=== PATIENT | female | born 1975 | race Caucasian/White ===

== ENCOUNTER 2016-03-04 18:26 | Emergency (ER) | payer OTHER ==
[2016-03-04 18:34] VITALS: BP 178/93
[2016-03-04] MEDS ORDERED: hydrOXYzine HCL TAB* 25 MG PO ONE (20:33)
[2016-03-04] MEDS ORDERED: ValACYclovir (*) 1 GM TAB PO ONE (20:34)
--- NOTE | 2016-03-04 20:53 | ED ---
Skin Complaint - HPI Summary HPI Summary: The patient is a 40 female presenting for pruritic rash on right side of neck x2 days. Admits to preceding pain at site, but denies current pain. Denies associated fever, chills, diaphoresis, headache, visual disturbance, nasal symptoms, sore throat, cough, neck stiffness or immobility, nausea, vomiting, myalgia, or arthralgia. No prior similar rash. History of MENs, HTN, asthma, COPD, carcinoma of intestine, GERD. Is s/p knee surgery, partial colectomy. FH of CAD, HTN, DM. SH: current smoker. Denies alcohol or substance use. - History of Current Complaint Chief Complaint: EDRashSkinAbscess Time Seen by Provider: 03/04/16 20:31 Stated Complaint: RASH ON NECK Hx Last Menstrual Period: 01/07/15 Pain Intensity: 0 - Allergy/Home Medications Allergies/Adverse Reactions: Allergies Allergy/AdvReac Type Severity Reaction Status Date / Time Aspirin Allergy Severe Heartburn Verified 01/11/16 12:31 Cephalexin [From Keflex] Allergy Severe Anaphylatic Verified 01/11/16 12:31 Shock Erythromycin Allergy Severe Difficulty Verified 01/11/16 12:31 Breathing Moxifloxacin [From Avelox] Allergy Severe Anaphylatic Verified 01/11/16 12:31 Shock Penicillin V Allergy Severe Difficulty Verified 01/11/16 12:31 [From Penicillin VK Breathing Potassium] Ibuprofen Allergy Intermediate See Comment Verified 01/11/16 12:31 Morphine Allergy Intermediate Hives Verified 01/11/16 12:31 Pseudoephedrine Allergy Intermediate Hives Verified 01/11/16 12:31 [From Sudafed] Valproic Acid [From Depakote] Allergy Intermediate See Comment Verified 12:31 PMH/Surg Hx/FS Hx/Imm Hx Endocrine/Hematology History: Reports: Hx Thyroid Disease, Other Endocrine/ Hematological Disorders - MEN1 Denies: Hx Diabetes Cardiovascular History: Reports: Hx Hypertension Denies: Hx Congestive Heart Failure, Hx Pacemaker/ICD Respiratory History: Reports: Hx Asthma, Hx Chronic Obstructive Pulmonary Disease (COPD) - chronic bronchitis GI History: Reports: Hx Gastroesophageal Reflux Disease, Hx Irritable Bowel, 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 Denies: Hx Ulcer History: Denies: Hx Renal Disease Sensory History: Denies: Hx Hearing Aid Neurological History: Denies: Other Neuro Impairments/Disorders Psychiatric History: Reports: Hx Bipolar Disorder Denies: Hx Panic Disorder - Cancer History Cancer Type, 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 - Surgical History Surgery Procedure, Year, and Place: left knee reconstruction and meniscal repair , tumor removal from bowel duct, gallbladder, tubal ligation, appendix, PARATHYROIDECTOMY 07/2012 Infectious Disease History: No Infectious Disease History: Denies: Hx Hepatitis, Hx Human Immunodeficiency Virus (HIV), History Other Infectious Disease, Traveled Outside the [place] in Last 30 Days - Family History Known Family History: Positive: Cardiac Disease, Hypertension, Diabetes - Social History Alcohol Use: None Substance Use Type: Reports: None Smoking Status (MU): Light Every Day Tobacco Smoker Type: Cigarettes Amount Used/How Often: 1/2 - 1 PPD Length of Time of Smoking/Using Tobacco: 26 YRS Review of Systems Constitutional: Negative Eyes: Negative ENT: Negative Respiratory: Negative Musculoskeletal: Negative Positive: Rash Neurological: Negative All Other Systems Reviewed And Are Negative: Yes Physical Exam Triage Information Reviewed: Yes Vital Signs On Initial Exam: Initial Vitals Temp Pulse Resp BP Pulse Ox 97.3 F 83 20 178/93 100 03/04/16 18:30 03/04/16 18:30 03/04/16 18:30 03/04/16 18:30 03/04/16 18:30 Vital Signs Reviewed: Yes Appearance: Positive: Well-Appearing, No Pain Distress, Obese Skin: Positive: Warm, Skin Color Reflects Adequate Perfusion, Dry, Other - right posterior scalp with erythematous raised vesicular patches that do not cross the midline; no facial involvement; no induration or fluctuance. Head/Face: Positive: Normal Head/Face Inspection Eyes: Positive: Normal, EOMI, MALIK, Conjunctiva Clear ENT: Positive: Normal ENT inspection, Hearing grossly normal, Pharynx normal, TMs normal Neck: Positive: Supple, Nontender, No Lymphadenopathy Respiratory/Lung Sounds: Positive: Clear to Auscultation, Breath Sounds Present. Negative: Rales, Rhonchi, Wheezes Cardiovascular: Positive: Normal, RRR, S1, S2. Negative: Murmur, Rub Neurological: Positive: Normal - awake, alert Psychiatric: Positive: Normal AVPU Assessment: Alert Diagnostics - Vital Signs Vital Signs Temp Pulse Resp BP Pulse Ox 03/04/16 18:30 97.3 F 83 20 178/93 100 - Laboratory Lab Statement: Any lab studies that have been ordered have been reviewed, and results considered in the medical decision making process. Course/Dx - Course Assessment/Plan: Clinical impression of herpes zoster. Reports more pruritis than pain. Rx for Vistaril and Valtrex. Educated on avoidance of women , infants, and elderly. Advised to follow-up with PCP in 7-10 days. - Diagnoses Provider Diagnoses: Herpes zoster Discharge - Discharge Plan Condition: Stable Disposition: HOME Prescriptions: ValACYclovir (*) [Valtrex 1 GM(*)] 1 gm PO TID #21 tab hydrOXYzine PAMOATE CAP* [Vistaril CAP*] 25 mg PO Q6HR #20 cap Patient Education Materials: Shingles (ED) Referrals: Aleksandra Miles MD [Primary Care Provider] - 1 Week
== END 2016-03-04 20:52 | disposition home or self-care (01) ==
LOC: ED 18:26
DX: B02.9 Zoster without complications (principal); F31.9 Bipolar disorder, unspecified; Z88.0 Allergy status to penicillin; Z88.5 Allergy status to narcotic agent; Z88.6 Allergy status to analgesic agent; I10 Essential (primary) hypertension; F17.210 Nicotine dependence, cigarettes, uncomplicated
CPT/HCPCS: 99282; A9270-GY

== ENCOUNTER 2016-03-17 19:48 | Emergency (ER) | payer OTHER ==
[2016-03-17 20:01] VITALS: BP 155/100
--- NOTE | 2016-03-20 09:19 | ED ---
Throat Pain/Nasal Congestion - HPI Summary HPI Summary: Patient arrives to ED with CC of right ear pain and cheek swelling since this AM. Denies fever. Denies trauma or recent illness. States pain feels deep inside the ear which began this AM and radiates down to her mandible. Now, starting to feel like her jaw is swollen. Denies tooth pain or recent infection in the jaw/teeth. States she has allergies to several medications and could be allergic reaction, but denies taking any medications currently. Denies sinus discomfort, IRENE, blurry or double vision or hearing changes. - History of Current Complaint Hx Obtained From: Patient Onset/Duration: Sudden Onset Severity: Mild Associated Signs And Symptoms: Positive: Negative - Epiglottits Risk Factors Epiglottis Risk Factors: Negative <Kate Oates - Last Filed: 03/20/16 09:11> <Arcadio Steve - Last Filed: 03/20/16 20:59> - History of Current Complaint Chief Complaint: EDEarPain Time Seen by Provider: 03/17/16 20:06 - Allergies/Home Medications Allergies/Adverse Reactions: Allergies Allergy/AdvReac Type Severity Reaction Status Date / Time Aspirin Allergy Severe Heartburn Verified 01/11/16 12:31 Cephalexin [From Keflex] Allergy Severe Anaphylatic Verified 01/11/16 12:31 Shock Erythromycin Allergy Severe Difficulty Verified 01/11/16 12:31 Breathing Moxifloxacin [From Avelox] Allergy Severe Anaphylatic Verified 01/11/16 12:31 Shock Penicillin V Allergy Severe Difficulty Verified 01/11/16 12:31 [From Penicillin VK Breathing Potassium] Ibuprofen Allergy Intermediate See Comment Verified 01/11/16 12:31 Morphine Allergy Intermediate Hives Verified 01/11/16 12:31 Pseudoephedrine Allergy Intermediate Hives Verified 01/11/16 12:31 [From Sudafed] Valproic Acid [From Depakote] Allergy Intermediate See Comment Verified 12:31 PMH/Surg Hx/FS Hx/Imm Hx Previously Healthy: Yes Endocrine/Hematology History: Reports: Hx Thyroid Disease, Other Endocrine/ Hematological Disorders - MEN1 Denies: Hx Diabetes Cardiovascular History: Reports: Hx Hypertension Denies: Hx Congestive Heart Failure, Hx Pacemaker/ICD Respiratory History: Reports: Hx Asthma, Hx Chronic Obstructive Pulmonary Disease (COPD) - chronic bronchitis GI History: Reports: Hx Gastroesophageal Reflux Disease, Hx Irritable Bowel, 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 Denies: Hx Ulcer History: Denies: Hx Renal Disease Sensory History: Denies: Hx Hearing Aid Neurological History: Denies: Other Neuro Impairments/Disorders Psychiatric History: Reports: Hx Bipolar Disorder Denies: Hx Panic Disorder - Cancer History Cancer Type, 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 - Surgical History Surgery Procedure, Year, and Place: left knee reconstruction and meniscal repair , tumor removal from bowel duct, gallbladder, tubal ligation, appendix, PARATHYROIDECTOMY 07/2012 Infectious Disease History: No Infectious Disease History: Denies: Hx Hepatitis, Hx Human Immunodeficiency Virus (HIV), History Other Infectious Disease, Traveled Outside the [place] in Last 30 Days - Family History Known Family History: Positive: Cardiac Disease, Hypertension, Diabetes - Social History Occupation: Employed Full-time Lives: With Family Alcohol Use: None Hx Substance Use: No Substance Use Type: Reports: None Smoking Status (MU): Light Every Day Tobacco Smoker Type: Cigarettes Amount Used/How Often: 1/2 - 1 PPD Length of Time of Smoking/Using Tobacco: 26 YRS <Kate Oates - Last Filed: 03/20/16 09:11> Review of Systems Constitutional: Negative Eyes: Negative Positive: Ear Ache, Other - left sided jaw pain Cardiovascular: Negative Respiratory: Negative Musculoskeletal: Negative Skin: Negative Neurological: Negative Psychological: Normal All Other Systems Reviewed And Are Negative: Yes <Kate Oates - Last Filed: 03/20/16 09:11> Physical Exam Triage Information Reviewed: Yes Vital Signs On Initial Exam: Initial Vitals Temp Pulse Resp BP Pulse Ox 97.7 F 93 20 155/100 99 03/17/16 19:57 03/17/16 19:57 03/17/16 19:57 03/17/16 19:57 03/17/16 19:57 Vital Signs Reviewed: Yes Appearance: Positive: Well-Appearing, No Pain Distress, Well-Nourished Skin: Positive: Warm, Skin Color Reflects Adequate Perfusion Head/Face: Positive: Normal Head/Face Inspection, Other - NO TMJ tenderness Eyes: Positive: Normal, EOMI ENT: Positive: Normal ENT inspection, Pharynx normal, TMs normal Neck: Positive: Supple, Nontender Respiratory/Lung Sounds: Positive: Clear to Auscultation, Breath Sounds Present Cardiovascular: Positive: Normal Musculoskeletal: Positive: Normal, Strength/ROM Intact Neurological: Positive: Normal, Sensory/Motor Intact, Speech Normal Psychiatric: Positive: Normal AVPU Assessment: Alert <Kate Oates - Last Filed: 03/20/16 09:11> Vital Signs On Initial Exam: Initial Vitals Temp Pulse Resp BP Pulse Ox 97.7 F 93 20 155/100 99 03/17/16 19:57 03/17/16 19:57 03/17/16 19:57 03/17/16 19:57 03/17/16 19:57 <Arcadio Steve - Last Filed: 03/20/16 20:59> Diagnostics - Vital Signs Vital Signs Temp Pulse Resp BP Pulse Ox 03/17/16 19:57 97.7 F 93 20 155/100 99 <Kate Oates - Last Filed: 03/20/16 09:11> - Vital Signs Vital Signs Temp Pulse Resp BP Pulse Ox 03/17/16 19:57 97.7 F 93 20 155/100 99 <Arcadio Steve - Last Filed: 03/20/16 20:59> EENT Course/Dx - Course Course Of Treatment: On physical examination, patient well nourished, well appearing. No signs of infection, swelling or tooth abscess. No fever. TM's normal appearing with no drainage or erythema. Patient encouraged to try OTC allergy medication and ibuprofen for discomfort. Return precautions given, however low suspician for infection. Patient agrees with plan. - Differential Diagnoses Differential Diagnoses: Dental Abscess, Odontogenic Pain, Otitis Media, Trigeminal Neuralgia <Kate Oates - Last Filed: 03/20/16 09:11> - Course Assessment/Plan: I was available for consultation. This patient was seen by mid level provider. The patient was not presented, seen, or examined by me. WR. <Arcadio Steve - Last Filed: 03/20/16 20:59> - Diagnoses Provider Diagnoses: Right ear pain Discharge <Kate Oates - Last Filed: 03/20/16 09:11> <Arcadio Steve - Last Filed: 03/20/16 20:59> - Discharge Plan Condition: Stable Disposition: HOME Patient Education Materials: Earache (ED) Referrals: Aleksandra Miles MD [Primary Care Provider] - Additional Instructions: Benadryl at night. Claritin D-24 during the day to reduce swelling and fluid. Come back to ED if symptoms worsen or fail to improve. No signs of infection are seen today, but if fever develops, swelling, difficulty swallowing or chewing or throat pain, come back to ED.
== END 2016-03-17 21:00 | disposition home or self-care (01) ==
LOC: ED 19:48
DX: H92.01 Otalgia, right ear (principal)
CPT/HCPCS: 99282

== ENCOUNTER 2017-04-01 04:32 | Emergency (ER) | payer MEDICAID, OTHER ==
[2017-04-01 05:36] LABS: ABS Basophils 0 10^3/ul (0-0.2); ABS Eosinophils 0.1 10^3/ul (0-0.6); ABS Lymphocytes 2.5 10^3/ul (1.0-4.8); ABS Monocytes 0.7 10^3/ul (0-0.8); ABS Neutrophils 6.4 10^3/ul (1.5-7.7); ABS Nucleated RBC 0 10^3/ul; Eosinophil % 1.1 % (0-6); Hematocrit 35 % (35-47); Hemoglobin 11.3 g/dl (12.0-16.0); Lymphocyte % 25.9 % (25-47); Mean Corpuscular HGB Conc 32 g/dl (31-36); Mean Corpuscular Hemoglobin 24 pg (27-31); Mean Corpuscular Volume 75 fL (80-97); Mean Platelet Volume 9 um3 (7.4-10.4); Nucleated Red Blood Cells % 0; Platelet Count 268 10^3/ul (150-450); Red Blood Count 4.68 10^6/ul (4.0-5.4); Red Cell Distribution Width 17 % (10.5-15); White Blood Count 9.7 10^3/ul (3.5-10.8)
[2017-04-01 05:58] LABS: Urine Appearance Clear; Urine Blood 2+ (Negative); Urine Color Yellow; Urine Ketones Negative (Negative); Urine Protein Negative (Negative); Urine Specific Gravity 1.018 (1.010-1.030); Urine Urobilinogen Negative (Negative)
--- NOTE | 2017-04-01 06:39 | ED ---
Yared Escudero Angela, scribed for Remi Doe on 04/01/17 at 0459 . Psychiatric Complaint - HPI Summary HPI Summary: This pt is a 42 y/o female presenting to [facility] for a medication refill. She has ran out of her bipolar disorder medications due to issues with her Medicaid. Pt reports she has not been sleeping well, sleeping only a couple of hours a night. She states she has been crying uncontrollably. The last time she took her medications was on 03/22/17. Pt reports she has just recently moved back to [place] on 02/26/17. She denies SI, HI, auditory or visual hallucinations. Pt denies any other complaints or pain. Pt used to see Dr. Cardenas at [facility] before she moved out of town but has not been able to see a psychiatrist since she moved back to [place]. She notes she takes Seroquel, Buspar, Lisinopril, escitalopram. Pt has an appointment with her PCP on 04/07/17. Denies drug, alcohol, or tobacco use. PMHx: bipolar disorder, HTN, asthma, sleep apnea, insomnia, COPD. - History Of Current Complaint Chief Complaint: EDPrescriptionNeeded Time Seen by Provider: 04/01/17 04:40 Hx Obtained From: Patient Hx Last Menstrual Period: 01/07/15 Onset/Duration: Lasting Days, Still Present Timing: Days Severity Currently: Moderate Character: Anxious Aggravating Factor(s): Medication Non-compliance Alleviating Factor(s): Nothing Associated Signs And Symptoms: Positive: Sleep Disturbance. Negative: Hallucinating Has Suicidal: Denies: Thoughts, With A Plan Has Homicidal: Denies: Thoughts, With A Plan - Allergies/Home Medications Allergies/Adverse Reactions: Allergies Allergy/AdvReac Type Severity Reaction Status Date / Time MS Aspirin [Aspirin] Allergy Severe Heartburn Verified 01/11/16 12:31 MS Cephalexin [From Keflex] Allergy Severe Anaphylatic Verified 01/11/16 12:31 Shock MS Erythromycin Allergy Severe Difficulty Verified 01/11/16 12:31 [Erythromycin] Breathing MS Moxifloxacin [From Avelox] Allergy Severe Anaphylatic Verified 01/11/16 12:31 Shock MS Penicillin V Allergy Severe Difficulty Verified 01/11/16 12:31 [From Penicillin VK Breathing Potassium] MS Ibuprofen [Ibuprofen] Allergy Intermediate See Comment Verified 01/11/16 12: 31 MS Morphine [Morphine] Allergy Intermediate Hives Verified 01/11/16 12:31 MS Pseudoephedrine Allergy Intermediate Hives Verified 01/11/16 12:31 [From Sudafed] MS Valproic Acid Allergy Intermediate See Comment Verified 01/11/16 12:31 [From Depakote] PMH/Surg Hx/FS Hx/Imm Hx Endocrine/Hematology History: Reports: Hx Thyroid Disease, Other Endocrine/ Hematological Disorders - MEN1 Denies: Hx Diabetes Cardiovascular History: Reports: Hx Hypertension Denies: Hx Congestive Heart Failure, Hx Pacemaker/ICD Respiratory History: Reports: Hx Asthma, Hx Chronic Obstructive Pulmonary Disease (COPD) - chronic bronchitis, Hx Sleep Apnea GI History: Reports: Hx Gastroesophageal Reflux Disease, Hx Irritable Bowel, 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 Denies: Hx Ulcer History: Denies: Hx Renal Disease Sensory History: Denies: Hx Hearing Aid Neurological History: Denies: Other Neuro Impairments/Disorders Psychiatric History: Reports: Hx Bipolar Disorder Denies: Hx Panic Disorder - Cancer History Cancer Type, 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 - Surgical History Surgery Procedure, Year, and Place: left knee reconstruction and meniscal repair , tumor removal from bowel duct, gallbladder, tubal ligation, appendix, PARATHYROIDECTOMY 07/2012 Infectious Disease History: No Infectious Disease History: Denies: Hx Hepatitis, Hx Human Immunodeficiency Virus (HIV), History Other Infectious Disease, Traveled Outside the [place] in Last 30 Days - Family History Known Family History: Positive: Cardiac Disease, Hypertension, Diabetes - Social History Alcohol Use: None Hx Substance Use: No Substance Use Type: Reports: None Smoking Status (MU): Light Every Day Tobacco Smoker Type: Cigarettes Amount Used/How Often: 1/2 - 1 PPD Length of Time of Smoking/Using Tobacco: 26 YRS Review of Systems Negative: Fever, Chills Eyes: Negative ENT: Negative Cardiovascular: Negative Respiratory: Negative Gastrointestinal: Negative Genitourinary: Negative Psychological: Other - sleep disturbance, crying Positive: Anxious. Negative: Other - SI, HI, hallucinations All Other Systems Reviewed And Are Negative: Yes Physical Exam - Summary Physical Exam Summary: Appearance: Well appearing, no pain distress Skin: warm, dry, reflects adequate perfusion Head/face: normal Eyes: EOMI, MALIK ENT: normal Neck: supple, nontender Respiratory: CTA, breath sounds present Cardiovascular: RRR, pulses symmetrical Abdomen: nontender, soft Bowel: present Musculoskeletal: normal, strength/ROM intact Neuro: normal, sensory motor intact, A&Ox3 Psych: depressed affect Triage Information Reviewed: Yes Vital Signs On Initial Exam: Initial Vitals Temp Pulse Resp BP Pulse Ox 97.9 F 66 16 151/95 99 04/01/17 04:36 04/01/17 04:36 04/01/17 04:36 04/01/17 04:36 04/01/17 04:36 Vital Signs Reviewed: Yes Diagnostics - Vital Signs Vital Signs Temp Pulse Resp BP Pulse Ox 04/01/17 04:36 97.9 F 66 16 151/95 99 - Laboratory Result Diagrams: 04/01/17 05:09 04/01/17 05:09 Lab Statement: Any lab studies that have been ordered have been reviewed, and results considered in the medical decision making process. Course/Dx - Course Course Of Treatment: Pt is a 42 y/o female, with hx of bipolar disorder, for prescription refill (last took meds on 03/22/17). Pt reports she has not been sleeping well and has been crying uncontrollably. Denies SI, HI, or hallucinations. Pt is medically cleared at 5:41. Pt is awaiting MHE. Pt will be signed out to Dr. Parra, pending disposition, awaiting MHE. - Differential Dx/Clinical Impression Provider Diagnosis: Depression Discharge - Discharge Plan Condition: Stable Disposition: OTHER Discharge Disposition Comment: Pt will be signed out to Dr. Parra, pending disposition, awaiting MHE Referrals: Aleksandra Miles MD [Primary Care Provider] - The documentation as recorded by the Yared cheema Angela accurately reflects the service I personally performed and the decisions made by , Remi Doe.
[2017-04-01] MEDS ORDERED: Mouth Piece, Nicotine* 1 EACH CARTRIDGE INH PRN (08:16)
[2017-04-01] MEDS ORDERED: Nicotine Inhaler* 10 MG AMP INH ONE (08:16)
[2017-04-01] MEDS ORDERED: Nicotine Inhaler* 10 MG AMP ONE ×2 (08:18)
[2017-04-01] MEDS ORDERED: Mouth Piece, Nicotine* 1 EACH CARTRIDGE ONE (08:18)
--- NOTE | 2017-04-01 09:40 | PN ---
ED Flex Patient Progress Note Date of Service: 04/01/17 Subjective: This is a 42 year-old F who is pending discharge to home Pt offers no complaints at this time Objective: Vitals: Most recent vital signs documented below. General NAD, Alert and oriented x3. Heart: rrr at 65 bpm Lungs: CTA or with rales, rhonchi, wheezing Laboratory: Current laboratory results documented below. Assessment: pending discharge home Plan: Pending psychiatric discharge Vital Signs Temp Pulse Resp BP Pulse Ox 98.1 F 69 16 136/74 100 04/01/17 09:19 04/01/17 09:19 04/01/17 09:19 04/01/17 09:19 04/01/17 09:19 Lab Results - Entire Visit 04/01/17 04/01/17 04/01/17 05:26 05:26 05:09 WBC 9.7 RBC 4.68 Hgb 11.3 L Hct 35 MCV 75 L MCH 24 L MCHC 32 RDW 17 H Plt Count 268 MPV 9 Neut % (Auto) 65.5 Lymph % (Auto) 25.9 [place] % (Auto) 7.1 H Eos % (Auto) 1.1 Baso % (Auto) 0.4 Absolute Neuts (auto) 6.4 Absolute Lymphs (auto) 2.5 Absolute Monos (auto) 0.7 Absolute Eos (auto) 0.1 Absolute Basos (auto) 0 Absolute Nucleated RBC 0 Nucleated RBC % 0 Sodium Potassium Chloride Carbon Dioxide Anion Gap BUN Creatinine Est GFR ( Amer) Est GFR (Non-Af Amer) BUN/Creatinine Ratio Glucose Calcium Total Bilirubin AST ALT Alkaline Phosphatase Total Protein Albumin Globulin Albumin/Globulin Ratio TSH Beta HCG, Quant Urine Color Yellow Urine Appearance Clear Urine pH 6.0 Ur Specific [place] 1.018 Urine Protein Negative Urine Ketones Negative Urine Blood 2+ H Urine Nitrate Negative Urine Bilirubin Negative Urine Urobilinogen Negative Ur Leukocyte Esterase Negative Urine WBC (Auto) Trace(0-5/hpf) Urine RBC (Auto) Trace(0-2/hpf) Ur Squamous Epith Cells Present H Urine Bacteria Absent Urine Glucose Negative Salicylates Urine Opiates Screen None detected Acetaminophen Ur Barbiturates Screen None detected Ur Phencyclidine Scrn None detected Ur Amphetamines Screen None detected U Benzodiazepines Scrn None detected Urine Cocaine Screen None detected U Cannabinoids Screen None detected Serum Alcohol 04/01/17 05:09 WBC RBC Hgb Hct MCV MCH MCHC RDW Plt Count MPV Neut % (Auto) Lymph % (Auto) [place] % (Auto) Eos % (Auto) Baso % (Auto) Absolute Neuts (auto) Absolute Lymphs (auto) Absolute Monos (auto) Absolute Eos (auto) Absolute Basos (auto) Absolute Nucleated RBC Nucleated RBC % Sodium 138 Potassium 3.7 Chloride 107 Carbon Dioxide 24 Anion Gap 7 BUN 13 Creatinine 0.72 Est GFR ( Amer) 113.2 Est GFR (Non-Af Amer) 88.0 BUN/Creatinine Ratio 18.1 Glucose 98 Calcium 8.3 L Total Bilirubin 0.30 AST 20 ALT 50 Alkaline Phosphatase 106 H Total Protein 6.3 L Albumin 3.6 Globulin 2.7 Albumin/Globulin Ratio 1.3 TSH 3.53 Beta HCG, Quant < 0.60 Urine Color Urine Appearance Urine pH Ur Specific [place] Urine Protein Urine Ketones Urine Blood Urine Nitrate Urine Bilirubin Urine Urobilinogen Ur Leukocyte Esterase Urine WBC (Auto) Urine RBC (Auto) Ur Squamous Epith Cells Urine Bacteria Urine Glucose Salicylates < 2.50 Urine Opiates Screen Acetaminophen < 15 Ur Barbiturates Screen Ur Phencyclidine Scrn Ur Amphetamines Screen U Benzodiazepines Scrn Urine Cocaine Screen U Cannabinoids Screen Serum Alcohol < 10
[2017-04-01 10:18] VITALS: BP 144/70
--- NOTE | 2017-04-01 20:30 | ED ---
Kena, Donna Boucher, scribed for Denia Treviño MD on 04/01/17 at 0816 . Progress - Progress Note Progress Note: This pt is a sign out from Dr. Doe pending MHE. Course/Dx - Course Course Of Treatment: Pt is a 42 y/o female, with hx of bipolar disorder, for prescription refill (last took meds on 03/22/17). Pt reports she has not been sleeping well and has been crying uncontrollably. Denies SI, HI, or hallucinations. Pt is medically cleared at 5:41. Pt is awaiting MHE. Pt will be signed out to Dr. Treviño, pending disposition, awaiting MHE. DR. TREVIÑO SHIFT: At 8:38, the pt was cleared for flex unit. Anticipate d/c with outpatient medications. Spoke to SHELBY Mcelroy MHE.The pt will be discharged with prescriptions. DX: Bipolar disorder. SHELBY Mcelroy spoke with Dr. Andrade (psychiatrist contract accountant) and relayed disposition to Dr. Treviño. Pt will follow up with Dr. Miles on her scheduled appointment on 04/07. DISPOSITION: STABLE, DX: BIPOLAR DISORDER - Diagnoses Provider Diagnoses: Depression, Bipolar disorder The documentation as recorded by the Sander cheema Stephanie accurately reflects the service I personally performed and the decisions made by , Denia Treviño MD.
== END 2017-04-01 10:17 | disposition home or self-care (01) ==
LOC: ED 04:32
DX: F32.9 Major depressive disorder, single episode, unspecified (principal); F31.9 Bipolar disorder, unspecified; G47.9 Sleep disorder, unspecified; F17.210 Nicotine dependence, cigarettes, uncomplicated; Z86.79 Personal history of other diseases of the circulatory system
CPT/HCPCS: 36415; 80053; 80307; 80320; 80329; 81003; 81015; 84443; 84702; 85025; 99283; A9270-GY; G0480

== ENCOUNTER 2017-07-25 09:30 | Emergency (ER) | payer MEDICAID, OTHER ==
[2017-07-25 09:59] VITALS: BP 125/75
--- NOTE | 2017-07-25 10:17 | UC ---
Hand/Wrist HPI - HPI Summary HPI Summary: pt presents s/p a foosh that happened last night with she tripped over her dog in the dark. pt landed on left wrist. - History Of Current Complaint Chief Complaint: UCUpperExtremity Stated Complaint: S/P FALL LEFT WRIST INJURY Time Seen by Provider: 07/25/17 09:39 Hx Obtained From: Patient Hx Last Menstrual Period: 07/18/17 ?: No Onset/Duration: Sudden Onset, Still Present Severity Initially: Moderate Severity Currently: Moderate Pain Intensity: 5 Character Of Pain: Sharp, Aching Aggravating Factor(s): Movement Alleviating Factor(s): Rest Associated Signs And Symptoms: Positive: Swelling, Numbness/Tingling - mild tingling. Negative: Redness, Bruising, Fever, Weakness - Allergies/Home Medications Allergies/Adverse Reactions: Allergies Allergy/AdvReac Type Severity Reaction Status Date / Time aspirin Allergy Heartburn Verified 07/25/17 09:50 cephalexin [From Keflex] Allergy Anaphylatic Verified 07/25/17 09:50 Shock divalproex sodium Allergy See Comment Verified 07/25/17 09:50 [From Depakote] erythromycin base Allergy Anaphylatic Verified 07/25/17 09:50 Shock ibuprofen Allergy Heartburn Verified 07/25/17 09:50 morphine Allergy Hives Verified 07/25/17 09:50 moxifloxacin [From Avelox] Allergy Anaphylatic Verified 07/25/17 09:50 Shock Penicillins Allergy Anaphylatic Verified 07/25/17 09:50 Shock pseudoephedrine Allergy Hives Verified 07/25/17 09:50 [From Sudafed] Home Medications: Home Medications Omeprazole CAP* [Prilosec CAP* 20 MG] 40 mg PO DAILY 07/25/17 [History Confirmed 07/25/17] Zolpidem TAB* [Ambien TAB*] 10 mg PO BEDTIME 07/25/17 [History Confirmed ] PMH/Surg Hx/FS Hx/Imm Hx Previously Healthy: No Endocrine History: Hypothyroidism Cardiovascular History: Hypertension Respiratory History: Asthma, Bronchitis - chronic Cancer History: Colorectal Cancer - Surgical History Surgical History: Yes Surgery Procedure, Year, and Place: left knee reconstruction and meniscal repair , tumor removal from bowel duct, gallbladder, tubal ligation, appendix, PARATHYROIDECTOMY 07/2012 - Family History Known Family History: Positive: Cardiac Disease, Hypertension, Diabetes - Social History Alcohol Use: None Substance Use Type: None Smoking Status (MU): Heavy Every Day Tobacco Smoker Type: Cigarettes Amount Used/How Often: 1 1/2 PPD Length of Time of Smoking/Using Tobacco: 26 YRS Cessation Counseling: Patient Advised to Stop - Immunization History Most Recent Influenza Vaccination: never Most Recent Tetanus Shot: 2013 Most Recent Pneumonia Vaccination: never Review of Systems Constitutional: Negative Skin: Negative Eyes: Negative ENT: Negative Respiratory: Negative Cardiovascular: Negative Gastrointestinal: Negative Musculoskeletal: Other: - see hpi Neurological: Paresthesia - mild tingling of left fingers All Other Systems Reviewed And Are Negative: Yes Physical Exam Triage Information Reviewed: Yes Appearance: Well-Appearing, No Pain Distress, Obese Vital Signs: Initial Vital Signs Temp 98.4 F 07/25/17 09:53 Pulse 69 07/25/17 09:53 Resp 20 07/25/17 09:53 BP 125/75 07/25/17 09:53 Pulse Ox 99 07/25/17 09:53 Vital Signs Reviewed: Yes Eyes: Positive: Conjunctiva Clear, Discharge ENT: Positive: Hearing grossly normal. Negative: Muffled voice, Hoarse voice Neck exam: Normal Respiratory: Positive: Lungs clear, Normal breath sounds, No respiratory distress, No accessory muscle use Cardiovascular: Positive: RRR, No Murmur Musculoskeletal: Positive: ROM Limited @ - d/t pain, Edema @ - mild swelling over left wrist. tender to paplapation of dis rad/ulna, carpal bones including the snuff box. distal neurovascukarly intact Neurological: Positive: Alert, Muscle Tone Normal, Other: Psychological: Positive: Age Appropriate Behavior Skin Exam: Normal Discharge - Discharge Plan Condition: Stable Disposition: HOME Patient Education Materials: Suspected Fracture (ED), Wrist Sprain (ED), Splint Care (ED) Referrals: Aleksandra Miles MD [Primary Care Provider] - If Needed (ARYAN ) Andi Loja MD [Medical Doctor] - (FOLLOW UP IN 5-7 DAYS) Additional Instructions: Your history and exam is suspicous for possible occult fracture of the scaphoid bone. This is a fracture that can have a bad outcome if not properly immobilized. So, we will treat this as a fracture until proven otherwise. That means that you must wear the splint 24 hours a day until the ortho provider tells you otherwise. It will take 5-7 days to establish whether or not your bone is fractured. - Billing Disposition and Condition Condition: STABLE Disposition: Home
--- NOTE | 2017-07-25 10:25 | RAD ---
HISTORY: tender dis rad/ulna, carpals incl snuff box, left wrist pain, injury COMPARISONS: June 28, 2010 VIEWS: 4, Frontal, lateral, oblique, and scaphoid deviation views of the left wrist FINDINGS: BONE DENSITY: Normal. BONES: There is no displaced fracture. JOINTS: There is no arthropathy. ALIGNMENT: There is no dislocation. SOFT TISSUES: Unremarkable. OTHER FINDINGS: None. IMPRESSION: NO ACUTE OSSEOUS INJURY. IF SYMPTOMS PERSIST, RECOMMEND REPEAT IMAGING.
== END 2017-07-25 11:11 | disposition home or self-care (01) ==
LOC: UCCORT 09:30
DX: S69.92XA Unspecified injury of left wrist, hand and finger(s), initial encounter (principal); W01.0XXA Fall on same level from slipping, tripping and stumbling without subsequent striking against object, initial encounter; Y93.9 Activity, unspecified; Y92.9 Unspecified place or not applicable; E03.9 Hypothyroidism, unspecified; I10 Essential (primary) hypertension; Z85.038 Personal history of other malignant neoplasm of large intestine; Z85.048 Personal history of other malignant neoplasm of rectum, rectosigmoid junction, and anus; Z88.6 Allergy status to analgesic agent; Z88.1 Allergy status to other antibiotic agents; Z88.5 Allergy status to narcotic agent; Z88.0 Allergy status to penicillin; Z88.8 Allergy status to other drugs, medicaments and biological substances; F17.210 Nicotine dependence, cigarettes, uncomplicated; Z82.49 Family history of ischemic heart disease and other diseases of the circulatory system; Z83.3 Family history of diabetes mellitus
CPT/HCPCS: 99212; G0463

== ENCOUNTER 2019-01-17 08:22 | Observation (INO) | payer OTHER ==
[2019-01-17] MEDS ORDERED: NS 0.9% 1000 ML** 1,000 ML IV ONE (08:24)
[2019-01-17] MEDS ORDERED: Iodixanol* (CONTRAST) 320 MG/ML 100 ML SDV IV ONE (08:34)
[2019-01-17 09:04] LABS: ABS Eosinophils 0.1 10^3/ul (0-0.6); ABS Lymphocytes 1.9 10^3/ul (1.0-4.8); ABS Monocytes 0.5 10^3/ul (0-0.8); ABS Neutrophils 4.5 10^3/ul (1.5-7.7); Eosinophil % 0.9 %; Hematocrit 36 % (35-47); Lymphocyte % 27.3 %; Mean Corpuscular HGB Conc 34 g/dL (31-36); Mean Corpuscular Hemoglobin 27 pg (27-31); Mean Corpuscular Volume 81 fL (80-97); Mean Platelet Volume 8.5 fL (7.4-10.4); Platelet Count 212 10^3/uL (150-450); Red Cell Distribution Width 14 % (10-15)
[2019-01-17] MEDS ORDERED: Clopidogrel TAB* 75 MG PO ONE (09:08)
[2019-01-17 09:16] LABS: Activated Partial Thrombo Time 35.3 seconds (26.0-38.0); INR 0.95 (0.82-1.09)
--- OUTSIDE RECORDS SUMMARY | 2019-01-17 09:19 | XMS REPORT | Summary of Care ---
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) (Primary Dx); Oncology MD Kelsea Prolactinoma (HCC); [address] Right upper quadrant pain [place] [phone] [place] [address] Allergies Active Allergy Reactions Severity Noted Date Comments Aspirin Hives 06/04/2010 Moxifloxacin Respiratory Reaction 06/04/2010 Hydrochloride Coconut Flavor Swelling 06/30/2012 THROAT SWELLS Depakote Cardiac Reaction 06/04/2010 Erythromycin Respiratory Reaction 06/04/2010 Subsys Other 11/10/2012 Itching possible sensitivity [ itch after EGD and pt received fentanyl and versed no rash [ pt has dry skin also] Aspartame-Ibuprofen Hives 06/04/2010 Keflex Respiratory Reaction 06/04/2010 Morphine Rash 06/04/2010 Penicillins Respiratory Reaction 06/04/2010 Ambenyl-D Respiratory Reaction 06/04/2010 Azithromycin Dihydrate Respiratory Reaction Medium 06/01/2013 documented as of this encounter (statuses as of 12/27/2018) Medications Medication Sig Dispensed Refills Start Date End Date Status Quetiapine Fumarate Take 300 mg by 0 Active (SEROQUEL XR) 300 MG mouth EVERY Oral TABLET SR 24 HR BEDTIME. Escitalopram Oxalate Take 10 mg by mouth 0 Active (LEXAPRO PO) EVERY BEDTIME. busPIRone (BUSPAR) 15 Take 15 mg by mouth 0 Active MG Oral Tab TWICE DAILY. albuterol HFA Take 2 Puffs by 1 Inhaler 0 04/25/2017 Active (VENTOLIN HFA) 108 inhalation EVERY (90 Base) MCG/ACT FOUR HOURS Inhalation Aero Soln NEEDED (wheezing). zolpidem (AMBIEN) 10 Take 10 mg by mouth 0 Active MG Oral Tab EVERY BEDTIME NEEDED. Ferrous Sulfate (IRON Take 1 Tab by mouth 0 Active SUPPLEMENT PO) DAILY. diphenoxylate-atropin Take 1 Tab by mouth 40 Tab 0 06/21/2018 Active e (LOMOTIL) 2.5-0.025 FOUR TIMES DAILY MG Oral Tab NEEDED for diarrhea. Max Daily Amount: 4 Tabs. OXYcodone Take 1 Tab by mouth 60 Tab 0 12/27/2018 Active (OXY-IR,OXY-FAST) 5 EVERY FOUR HOURS MG Oral Tab NEEDED (pain). Max Daily Amount: 30 mg. 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 Dr. Cardenas Hypertension documented as of this encounter (statuses as of 12/27/2018) Immunizations Name Administration Dates Next Due Cortrosyn (.25mg) 06/30/2012 Influenza (IM) Preservative Free 11/26/2013 TDAP Vaccine 06/18/2015 documented as of this encounter Social History Tobacco Use Types Packs/Day Years Used Date Current Every Day Smoker Cigarettes 1.5 20 Quit: 03/06/2014 Smokeless Tobacco: Never Used Alcohol Use Drinks/Week oz/Week Comments No 0 Standard drinks or equivalent 0.0 Sex Assigned at Date Recorded Not on file Job Start Date Occupation Industry Not on file Not on file Not on file Travel History Travel Start Travel End No recent travel history available. documented as of this encounter Last Filed Vital Signs Not on filedocumented in this encounter Patient Instructions Patient InstructionsKelsea Ram MD - 12/27/2018 11:30 AM ESTReturn appointments timing: approx 4 weeks Provider type: anna Labs: CBC, CMP Labs to be done prior to next visit Port/PICC: none Infusion type:Lanreotide Contact office with any changes or questions: During Business hours: Yolanda [phone] [place] [phone] After hours/holidays/weekends Call Yolanda track laying machine operator [phone] and ask for oncology major donor coordinator If you have an acute emergency call 911 documented in this encounter Progress Notes Kelsea Ram MD - 12/27/2018 11:30 AM EST HEMATOLOGY/ONCOLOGY FOLLOW-UP VISIT PATIENT: Cristin Cota : 1975 DATE OF SERVICE: 12/27/2018 REFERRING PRACTITIONER: Anna Bernstein PRIMARY CARE PROVIDER: Aleksandra Miles Oncologic diagnosis: Metastatic neuroendocrine tumor, well-differentiated, grade 1. Liver metastases from small bowel primary. Current treatment: Lanreotide 120 mg every 4 weekly Diagnostic/treatment history In 2004, patient was found to have an irregular tumor in her terminal ileum found during upper endoscopy. In June 2004, patient underwent resection of the tumor. 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 In 2018, patient developed transaminitis and ultrasound of her abdomen found changes consistent withhepatic steatosis and liver enlargement. In the right upper lobe of the liver, there are 3 hyperechoic areas found. Follow-up MRI indicated 3 nonenhancing intrahepatic lesions. Biopsy of liver areas completed on 05/03/2018 indicated a well-differentiated neuroendocrine tumor, grade 1 ( carcinoid tumor). 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 Patient is also been diagnosed with prolactinoma with microadenoma pituitary gland. HISTORY OF PRESENT ILLNESS: Cristin Cota is a 43-y.o. female with history of recurrent carcinoid tumor comes to clinic for follow-up. She continues on monthly lanreotide injections. Reports no side effects with that. Next Has chronic ofpuovbs-7-2 loose bowel movements a day especially after eating Certain types of food, Which she has identified and trying to avoid. She takes Lomotil, which helps with diarrhea. She may take 0-3 tabs of Lomotil per day. She also reports episodic flushing with sweats multiple times during the day and night, but they are not impairing quality of life. She started working from last month b and reports that going back to work has not been very stressful. She notes spasmodic pain in the right upper quadrant and in the right leg from time to time, and taking Tylenol 2-3 tabs a day has not been helpful. She denies any nausea, vomiting, pain being affected by food intake. Patient has also been following with medical oncology at [facility]. She has an appointment for MRI in February 2019. There was discussion regarding cytoreduction surgery to liver, but she is not sure if she wants to do that EGOG PS: 0 Past Medical History: Diagnosis Date Asthma Back pain CHRONIC BACK PAIN Bipolar disorder (HCC) [facility]. Dr. 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 COPD (chronic obstructive pulmonary disease) (HCC) GERD (gastroesophageal reflux disease) EGD 2011 Hyperparathyroidism (HCC) Hypertension Obesity KEVIN (obstructive sleep apnea) 09/27/2013 Auto CPAP (4-20 cm) with heated humidification through [employer] [place] [facility] on [employer] softwear Prolactinoma (HCC) Dr. Mendenhall Past Surgical History: Procedure Laterality Date COLONOSCOPY DIAGNOSTIC KNEE ARTHROSCOPY L kne meniscus repair LAPAROSCOPIC TUBAL LIGATION GA APPENDECTOMY GA PART REMOVAL COLON W ANASTOMOSIS R, for carcinoid. Dr. Almazan GA RE-EXPLORE PARATHYROIDS GA REMOVAL GALLBLADDER Family History Problem Relation Age of Onset High Cholesterol Father brother Hypertension Father brother Colon Cancer Unknown uncle Diabetes Unknown GM, GP GI Other paternal great aunt: GI carcinoid tumor Anesth Problems No family history Arthritis No family history Cancer No family history Clotting Disorder No family history Heart Disease No family history Kidney Disease No family history Thyroid Disease No family history Current Outpatient Medications Medication Sig albuterol HFA (VENTOLIN HFA) 108 (90 Base) MCG/ACT Inhalation Aero Soln Take 2 Puffs by inhalation EVERY FOUR HOURS NEEDED (wheezing). busPIRone (BUSPAR) 15 MG Oral Tab Take 15 mg by mouth TWICE DAILY. diphenoxylate-atropine (LOMOTIL) 2.5-0.025 MG Oral Tab Take 1 Tab by mouth FOUR TIMES DAILY NEEDED for diarrhea. Max Daily Amount: 4 Tabs. Escitalopram Oxalate (LEXAPRO PO) Take 10 mg by mouth EVERY BEDTIME. Ferrous Sulfate (IRON SUPPLEMENT PO) Take 1 Tab by mouth DAILY. OXYcodone (OXY-IR,OXY-FAST) 5 MG Oral Tab Take 1 Tab by mouth EVERY FOUR HOURS NEEDED (pain). Max Daily Amount: 30 mg. Quetiapine Fumarate (SEROQUEL XR) 300 MG Oral TABLET SR 24 HR Take 300 mg by mouth EVERY BEDTIME. zolpidem (AMBIEN) 10 MG Oral Tab Take 10 mg by mouth EVERY BEDTIME NEEDED. Current Facility-Administered Medications Medication octreotide (SANDOSTATIN) injection 50 mcg Facility-Administered Medications Ordered in Other Visits Medication lanreotide (SOMATULINE) injection 120 mg Allergies Allergen Reactions Zithromax [Azithromycin Dihydrate] Respiratory Reaction Aspirin Hives Avelox [Moxifloxacin Hydrochloride] Respiratory Reaction Coconut Flavor Swelling THROAT SWELLS Depakote Cardiac Reaction Erythromycin Respiratory Reaction Fentanyl [Subsys] Other Itching possible sensitivity [ itch after EGD and pt received fentanyl and versed no rash [ pt hasdry skin also] Ibuprofen [Aspartame-Ibuprofen] Hives Keflex Respiratory Reaction Morphine Rash Pcn [Penicillins] Respiratory Reaction Sudafed Cough [Ambenyl-D] Respiratory Reaction Social History Socioeconomic History Marital status: Spouse name: Not on file Number of children: Not on file Years of education: Not on file Highest education level: Not on file Occupational History Not on file Social Needs Financial resource strain: Not on file Food insecurity: Worry: Not on file Inability: Not on file Transportation needs: Medical: Not on file Non-medical: Not on file Tobacco Use Smoking status: Current Every Day Smoker Packs/day: 1.50 Years: 20.00 Pack years: 30.00 Types: Cigarettes Last attempt to quit: 03/06/2014 Years since quittin.8 Smokeless tobacco: Never Used Substance and Sexual Activity Alcohol use: No Alcohol/week: 0.0 standard drinks Drug use: No Sexual activity: Yes Partners: Male Lifestyle Physical activity: Days per week: Not on file Minutes per session: Not on file Stress: Not on file Relationships Social connections: Talks on phone: Not on file Gets together: Not on file Attends hoahaoism service: Not on file Active member of club or organization: Not on file Attends meetings of clubs or organizations: Not on file Relationship status: Not on file Intimate partner violence: Fear of current or ex partner: Not on file Emotionally abused: Not on file Physically abused: Not on file Forced sexual activity: Not on file Other Topics Concern Not on file Social History Narrative the patient denies any history of exposure to asbestos, silica or tuberculosis. REVIEW OF SYSTEMS: Review of Systems Constitutional: Negative for chills, fever and weight loss. HENT: Negative for hearing loss, nosebleeds, sore throat and tinnitus. Eyes: Negative for blurred vision and double vision. Respiratory: Negative for cough, shortness of breath and wheezing. Cardiovascular: Negative for chest pain and leg swelling. Gastrointestinal: Negative for abdominal pain, blood in stool, nausea and vomiting. Ongoing loose stools Genitourinary: Negative for dysuria, frequency and hematuria. Musculoskeletal: Negative for myalgias. Skin: Negative for rash. Neurological: Negative for tremors, sensory change and headaches. Endo/Heme/Allergies: Does not bruise/bleed easily. Psychiatric/Behavioral: Negative for depression. The patient is not nervous/ anxious. PHYSICAL EXAMINATION: VITALS: There were no vitals taken for this visit. There is no height or weight on file to calculate BMI. Physical Exam Constitutional: She appears well-developed and well-nourished. HENT: Head: Normocephalic and atraumatic. Nose: Nose normal. Eyes: Conjunctivae are normal. No scleral icterus. Neck: Neck supple. No thyromegaly present. Cardiovascular: Normal rate, regular rhythm and normal heart sounds. Exam reveals no gallop and no friction rub. No murmur heard. Pulmonary/Chest: Effort normal and breath sounds normal. No respiratory distress. She has no wheezes. She has no rales. Abdominal: Soft. Bowel sounds are normal. She exhibits no distension and no mass. There is no tenderness. There is no rebound and no guarding. Musculoskeletal: She exhibits no edema. Lymphadenopathy: She has no cervical adenopathy. Neurological: She is alert. No cranial nerve deficit. Skin: Skin is warm and dry. LABORATORY DATA: Lab Results Component Value Date WBC 12.42 (H) 12/27/2018 RBC 5.19 12/27/2018 HGB 13.8 12/27/2018 HCT 42.5 12/27/2018 MCV 81.9 12/27/2018 MCH 26.6 12/27/2018 MCHC 32.5 12/27/2018 PLAT 314 12/27/2018 MPV 10.4 12/27/2018 RDW 13.3 12/27/2018 LYMPHOCYTEPE 23.4 12/27/2018 MONOCYTEPE 4.8 12/27/2018 EOSINOPHILPE 0.8 12/27/2018 BASOPHILPE 0.3 12/27/2018 NEUTROPHILAB 8.71 (H) 12/27/2018 LYMPHOCYTEAB 2.91 12/27/2018 MONOCYTEAB 0.60 12/27/2018 EOSINOPHILAB 0.10 12/27/2018 BASOPHILAB 0.04 12/27/2018 Lab Results Component Value Date NA 138 12/27/2018 K 4.1 12/27/2018 CL 103 12/27/2018 CO2 25 12/27/2018 GLUCOSE 131 (H) 12/27/2018 BUN 9 12/27/2018 CREATININE 0.7 12/27/2018 CALCIUM 9.4 12/27/2018 TP 7.7 12/27/2018 ALBUMIN 4.4 12/27/2018 AST 45 12/27/2018 ALT 73 (H) 12/27/2018 ALK 103 12/27/2018 TBILI 0.6 12/27/2018 EGFR >60 12/27/2018 Lab Results Component Value Date CHROMO 64 11/29/2018 Pathology: - Liver 05/03/18: Imaging: - NM SPECT/CT body octreoscan 06/01/18: - MRI brain with and without contrast 05/26/2018: - CT chest with IV contrast 05/18/2018: - Mary 08/29/2018: IMPRESSION/PLAN: Cristin was seen today for follow up 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 I Agreed that she needs restaging scan to assess tumor response. I strongly recommended gallium PET scan to give us a true assessment of disease. If diseaseis stable can continue with lanreotide. If she has disease progression, she would be an excellent candidate for Lutathera treatment or liver directed therapy, and we talked about both these treatmentsbriefly today. She will be discussing this further with her team in [facility] as well -She postponed her appointment at [facility] from November, as she did not want to have surgery prior to holidays. I encouraged her to keep the appointment in July 2019 and not delayed anyfurther, as it has been a while she had scans, and the right upper quadrant pain makes me worry about disease progression in the liver -I asked her to bring us the report and CDs of all her scans at next visit -Chromogranin A level pending today - CBC, CMP at next visit in 4 weeks Right upper quadrant pain: -Unrelieved by Tylenol. Secondary to liver metastases? 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 She is asymptomatic. Follow-up with endocrinology Follow up: 4 weeks We will continue to follow Please call with questions Kelsea Ram MD Hematology/oncology documented in this encounter Plan of Treatment Date Type Specialty Care Team Description 01/24/2019 Office Visit Hematology and Oncology Anna Bernstein PA-C [address] [place] [id number] Name Type Priority Associated Diagnoses Date/Time CHROMOGRANIN A Lab Routine Metastatic malignant 12/27/2018 10:50 AM EST neuroendocrine tumor to liver (HCC) Health Maintenance Due Date Last Done Comments MAMMOGRAM (SCREENING) 04/27/2018 04/27/2017, 06/18/2015, 03/27/2014 (Declined), Additional history exists INFLUENZA VACCINE (#1) 2019 11/26/2013 Postponed from 10/08/2018 (Other) DEPRESSION SCREENING 07/08/2019 07/07/2018 LIPID DISORDER SCREENING 11/02/2019 11/01/2018, 04/25/2017, 04/16/2015, Additional history exists Colonoscopy 11/27/2019 11/26/2014, 07/18/2013, 07/21/2010, Additional history exists DIABETES SCREENING 11/30/2019 11/29/2018, 11/01/2018, 10/04/2018, Additional history exists PNEUMOCOCCAL 0-64 YRS (1 of 11/30/2019 Postponed from 3 - PCV13) 1979 (Other) PAP SMEAR 07/28/2021 07/28/2018, 06/18/2015, 06/18/2015, Additional history exists HPV IMMUNIZATION SERIES Aged Out No longer eligible based on patient's age to complete this topic MENINGOCOCCAL VACCINE IMM Aged Out No longer eligible based on patient's age to complete this topic documented as of this encounter Goals Goal Patient Goal Associated Recent Patient-Stated? Author Type Problems Progress Blood Pressure Blood Pressure Hypertension 136/70 No Ginger, < 140/90 (12/27/2018 Aleksandra, 1:06 PM EST) Note: Hypertension Care Plan Based on the patient's clinical history and according to JNC 8 guidelines target blood pressure goal is less than 140/90. Based on the patient's last blood pressure of BP: 108/72 mmHg the patient is at at goal. As your provider, it is important that I advise you regarding: your current medications and help you with any challenges you may face taking your medications as directed (ex. instructions, cost, side effects, and interactions). Important lifestyle changes: exercise, weight reduction and diet your clinical goals and how you can achieve success: weight reduction, exercise plan and diet improvements medication management: adjusted medications as appropriate patient education/self-management tools provided: Yes To successfully manage my Hypertension I will: monitor my blood pressure daily, understanding that my goal is less than 140/ 90 per my healthcare provider's recommendation. I will schedule an appointment with my provider if consistent abnormal readings greater than 160/100. take medications every day as prescribed by my healthcare provider and if unable to take them I will discuss with my provider. monitor for symptoms of chest pain, chest tightness/pressure, irregular heartbeat, persistent dizziness, radiating arm pain, and neck or jaw pain. If any of these symptoms are noticed I will seek medical attention immediately by calling 911 exercise/walk 30 minutes 5 day(s) per week. If I experience chest pain, chest tightness, or shortness of breath, I will seek medical attention immediately. follow a diet rich in fruits, vegetables, and low-fat dairy products with reduced content of saturated & total fat. I will reduce my sodium intake daily. An example is the DASH diet. To obtain more information please refer to the DASH Eating Plan listed in Educational Resources. record my blood pressure results. Sofie is safe and secure way for you to do this in your medical record online. try to obtain an ideal body weight. My recent weight was Weight: 207 lb ( 93.895 kg). My weight loss goal for my next office visit is 195. limit alcohol consumption. For men two drinks per day and women one drink per day. if currently smoking, will discuss how to quit smoking with my healthcare provider and work towards quitting. Educational Resources: National Heart, Lung, & Blood [place] http://nhlbi.nih.gov/hbp/index.html The DASH Diet Eating Plan http://www.nhlbi.nih.gov/health/health-topics/ topics/dash/ Academy of Nutrition & DIetetics http://eatright.org National Smoking Cessation Site http://smokefree.gov Blood Pressure < Blood Pressure 136/70 (12/27/2018 No Aleksandra Miles, 140/90 1:06 PM FIFI) Note: This is an individualized treatment (blood pressure) goal for Cristin Cota: Displayed above (on the left) is your goal for blood pressure control. Your most recent blood pressure is also shown above, on the right. You should try to achieve blood pressures that are lower than your goal listed above (on the left). Smoking Cessation COPD No Aleksandra Miles MD Note: This is an individualized treatment (COPD) goal for Cristin Cota: Quit smoking immediately! Your provider has information and resources that may help you to quit. Depression screen (PHQ-9) total score < 5 Depression No Aleksandra Miles MD Note: This is an individualized treatment (depression) goal for Cristin Cota: Displayed above is your goal for a depression screening (PHQ-9) score that would indicate good control of your depression. Lifestyle - Current Smoker Lifestyle Smoking No Aleksandra Miles MD Note: Smoking Cessation Plan Discussed smoking cessation with patient. Patient readiness to quit:no Discussed smoking cessation plan according to AHRQ guidelines:counseled patient on the risks of tobacco use and advised patient to quit and offered support My Quit Plan: My quit date is set for Notify my friends, family, and co-workers about decision to quit. Will ask for their support and understanding Remove tobacco products from my environment. I will ask people not to smoke around me or in my home. I will anticipate challenges at the beginning and will try not to be discouraged. To remember the benefits of quitting such as improved health, feeling better about myself, saving money, etc. Reducing stressors and avoiding triggers are essential keys to my success Finding ways to distract myself when I have the urge to smoke such as taking a walk, reading, playing a board game, putting together a puzzle, etc. Taking medications as my healthcare provider has advised to help alleviate the urge to smoke. If I am unable to take the medication, I will discuss further with my healthcare provider. Recognize reasons for relapse in my past attempts. What did and did not work for me Consider connecting with group, individual, or telephone counseling Weight loss vs. 18 mo Lifestyle 4.8 (11/29/2018 12:36 PM No Aleksandra Miles MD max (lbs) >= 10 EDT) Note: This is an individualized lifestyle goal for Crsitin Cota: Your body mass index (BMI) is more than 30. You should lose weight. A reasonable starting goal is to lose 10 pounds. Displayed above is how many pounds you have lost thus far towards your 10 pound weight loss goal. Keep immunizations current Lifestyle No Aleksandra Miles MD Note: This is an individualized lifestyle goal for Cristin Cota: Please be sure to keep up-to-date on recommended immunizations. For example, this would include a yearly influenza vaccine. Immunization status can be seen by looking at the Health Maintenance sections of your [facility], Plan of Care, and any After Visit Summaries. Keep a regular sleep schedule Lifestyle No Aleksandra Miles MD Note: This is an individualized lifestyle goal for Cristin Cota: Please maintain a regular sleep schedule. This may help with some symptoms of depression. Take all prescribed medications as Self-management No Aleksandra Miles MD directed Note: This is an individualized self-management goal for Cristin Cota: Please take all prescribed medications as directed. 1. Do not skip doses. If you cannot afford your medications, talk with your doctor. 2. Use a pill reminder system such as a pill box if needed. Your pharmacist can help you with this. 3. Contact your Pharmacy 5 days before your medication runs out. If you cannot take your medications for any reasons, talk with your doctor. 4. Please bring all of your medication bottles and inhalers (or a list of all your medications/inhalers) with you to every visit. Potential barriers to meeting all of your care plan goals will continue to be addressed on an ongoing basis. documented as of this encounter Procedures Procedure Name Priority Date/Time Associated Diagnosis Comments CBC WITH DIFFERENTIAL STAT 12/27/2018 10:50 Metastatic malignant Results for this AM EST neuroendocrine tumor procedure are in to liver (HCC) the results section. COMPREHENSIVE STAT 12/27/2018 10:50 Metastatic malignant Results for this METABOLIC PANEL AM EST neuroendocrine tumor procedure are in to liver (HCC) the results section. documented in this encounter Results CBC WITH DIFFERENTIAL (12/27/2018 10:50 AM EST) WBC Count 12.42 (H) 3.98 - 10.04 [facility] K/uL LABORATORY RBC Count 5.19 3.93 - 5.22 M/UL [facility]OR[facility] Hemoglobin 13.8 11.2 - 15.7 g/dL [place] [employer] [facility] LABORATORY Hematocrit 42.5 34.1 - 44.9 % [place] [employer] [facility] MCV 81.9 79.4 - 94.8 FL [facility] LAB[facility] MCH 26.6 25.6 - 32.2 PG [facility] MCHC 32.5 32.2 - 35.5 g/dL [facility] LABORATORY Platelet Count 314 182 - 369 K/uL [facility] [employer] [facility] MPV 10.4 9.4 - 12.3 FL [facility] RDW 13.3 11.7 - 14.4 % [facility] [employer] [facility] LAB[facility] Neutrophil % 70.2 34.0 - 71.1 % [facility] [employer] [facility] Lymphocyte % 23.4 19.3 - 51.7 % [facility] [employer] [facility] Monocyte % 4.8 4.7 - 12.5 % [facility] [employer] [facility] Eosinophil % 0.8 0.7 - 5.8 % [facility] Basophil % 0.3 0.1 - 1.2 % [facility] nRBC % 0.0 0.0 - 0.2 % [facility] Neutrophil # 8.71 (H) 1.56 - 6.13 K/UL [facility] Lymphocyte # 2.91 1.18 - 3.74 K/UL [facility] Monocyte # 0.60 0.24 - 0.86 K/UL [facility] Eosinophil # 0.10 0.04 - 0.36 K/UL [facility] Basophil # 0.04 0.01 - 0.08 K/UL [facility] Immature Gran % 0.5 (H) 0.0 - 0.4 % [facility] Immature Gran # 0.06 (H) 0.00 - 0.03 K/uL [facility] NRBC # 0.00 0.00 - 0.12 K/uL [facility] Specimen Blood Performing Organization Address City/State[facility] Phone Number [facility] [address] [place] [address] [phone] COMPREHENSIVE METABOLIC PANEL (12/27/2018 10:50 AM EST) Sodium 138 134 - 145 mmol/L [facility] Potassium 4.1 3.5 - 5.1 mmol/L [facility] Chloride 103 98 - 107 mmol/L [facility] CO2 25 22 - 30 mmol/L [facility] Calcium 9.4 8.3 - 10.1 mg/dl [facility] Albumin 4.4 3.5 - 5.0 g/dl [facility] BUN 9 7 - 17 mg/dl [facility] Creatinine 0.7 0.7 - 1.2 mg/dl [facility] Glucose 131 (H) 70 - 99 mg/dl [facility] Total Protein 7.7 6.3 - 8.2 g/dl [facility] Total Bilirubin 0.6 0.0 - 1.1 MG/DL [facility] AST 45 15 - 46 U/L [facility] ALT 73 (H) 9 - 52 U/L [facility] Alkaline 103 40 - 150 U/L [facility] Phosphatase [facility] LABOR[facility]ORY eGFR >60 See Interpretation [facility] Comment: Below ml/min/1.73ml GROUP Estimated GFR Interpretation: LABORATORY Above 60ml/min/1.73m2 = Normal Renal Function 30-59 ml/min/1.73m2 = Stage 3 Chronic Kidney Disease 15-29 ml/min/1.73m2 = Stage 4 Chronic Kidney Disease Less than 15 ml/min/1.73m2 = Stage 5 Chronic Kidney Disease The GFR value is calculated using the Modification of Diet in Renal Disease ( MDRD) Study Equation which can be found at: https://www.kidney.org/content/bmqb-bomzy-pdugwrkn BUN/Creatinine 13 6 - 22 RATIO [facility] LABORATORY Anion Gap 10 3 - 11 mmol/L [facility] A/G Ratio 1.3 0.8 - 2.0 ratio [facility] Specimen Blood Performing Organization Address City/State/[facility] Phone Number [facility] [address] [place] [place] [address] documented in this encounter Visit Diagnoses Diagnosis 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
--- OUTSIDE RECORDS SUMMARY | 2019-01-17 09:19 | XMS REPORT | Summary of Care ---
:1975 Author Organization [facility] Address [address] [address] Care Team Providers Name Role Phone Aleksandra Miles Primary Care Provider Reason for Visit (Routine) Status Reason Specialty Diagnoses / Referred By Referred To Procedures Contact Contact Authorized Infusion Therapy Diagnoses Other secondary neuroendocrine tumors Leanna [facility] Infusion Procedures [place] LANREOTIDE INJECTION MD [facility] [address] [address] [address] [address] [address] Phone: [phone] Encounter Details Date Type Department Care Team Description 12/27/2018 Hospital Encounter [facility] Infusion Center Outpatient [address] [phone] Allergies Active Allergy Reactions Severity Noted Date [...] as of this encounter (statuses as of 12/29/2018) Medications Medication Sig Dispensed Refills Start Date [...] for diarrhea. Max Daily Amount: 4 Tabs. 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 Dr. Cardenas Hypertension documented as of this encounter (statuses as of 12/29/2018) Immunizations Name Administration Dates Next Due Cortrosyn [...] of this encounter Last Filed Vital Signs Vital Sign Reading Time Taken Comments Blood Pressure 136/70 12/27/2018 1:06 PM EST Pulse - - Temperature - - Respiratory Rate - - Oxygen Saturation - - Inhaled Oxygen Concentration - - Weight - - Height - - Body Mass Index - - documented in this encounter Plan of Treatment Date Type Specialty Care Team Description 01/24/2019 Office Visit Hematology and Oncology Collins Bernstein PA-C [address] [id number] 01/24/2019 Appointment Infusion Therapy Health Maintenance Due Date Last Done Comments MAMMOGRAM (SCREENING) 04/27/2018 04/27/2017, 06/18/2015, 03/27/2014 (Declined), Additional history exists INFLUENZA VACCINE (#1) 2019 11/26/2013 Postponed from 10/08/2018 (Other) DEPRESSION SCREENING 07/08/2019 07/07/2018 LIPID DISORDER SCREENING 11/02/2019 11/01/2018, 04/25/2017, 04/16/2015, Additional history exists Colonoscopy 11/27/2019 11/26/2014, 07/18/2013, 07/21/2010, Additional history exists PNEUMOCOCCAL 0-64 YRS (1 of 11/30/2019 Postponed from 3 - PCV13) 1979 (Other) DIABETES SCREENING 12/28/2019 12/27/2018, 11/29/2018, 11/01/2018, Additional history exists PAP SMEAR 07/28/2021 07/28/2018, 06/18/2015, 06/18/2015, Additional [...] Educational Resources. record my blood pressure results. [employer] is safe and secure way for you [...] Educational Resources: National Heart, Lung, & Blood Hale http://nhlbi.nih.gov/hbp/index.html The DASH Diet Eating Plan http://www.nhlbi.nih.gov/health/health-topics/ topics/dash/ Academy of Nutrition & DIetetics http://eatright.org National Smoking Cessation Site http://smokefree.gov Blood Pressure < Blood Pressure 136/70 (12/27/2018 Aleksandra Riley, 140/90 1:06 PM [facility] [place] Note: This is an individualized treatment (blood pressure) goal for Cristin Cota: Displayed above (on the left) is your goal for blood pressure control. Your most recent blood pressure is also shown above, on the right. You should try to achieve blood pressures that are lower than your goal listed above (on the left). Smoking Cessation COPD Aleksandra Riley MD Note: This is an individualized treatment [...] depression. Lifestyle - Current Smoker Lifestyle Smoking Aleksandra Riley MD Note: Smoking Cessation Plan Discussed smoking [...] 18 mo Lifestyle 4.8 (11/29/2018 12:36 PM Aleksandra Riley MD max (lbs) >= 10 EDT) Note: This is an individualized lifestyle goal for Cristin Cota: Your body mass index (BMI) is [...] ongoing basis. documented as of this encounter Results Not on filedocumented in this encounter Administered Medications Medication Order MAR Action Action Date Dose Rate Site lanreotide (SOMATULINE) Given 12/27/2018 12:30 120 mg Buttocks - Right injection 120 mg PM EST 120 mg, Subcutaneous, [id number], First dose on Tue12/27/18 at 1230, Until Discontinued, Administer by deep subcutaneous injection to superior outer quadrant of buttocks. Alternate injection sites. Remove product from sealed pouch and allow to sit for 30 minutes prior to administration once removed from refrigerator. , documented in this encounter Guarantor Name Account Type Relation to Date of Phone Billing Address Patient Cristin Cota Personal/Family 1975 [address] [id number] documented as of this encounter
--- OUTSIDE RECORDS SUMMARY | 2019-01-17 09:19 | XMS REPORT | Summary of Care ---
:1975 Author Organization [facility] Address [address] [facility] [place] [address] Care Team Providers Name Role Phone Aleksandra Miles Primary Care Provider Reason for Visit Reason Comments Follow Up 4 week follow up labsdone Chemotherapy Encounter Details Date Type Department Care Team Description 11/29/2018 Office Visit [facility] Hematology Collins Bernstein Metastatic malignant Oncology BABS [place] neuroendocrine tumor to [address] [place] [address] [place] [facility] (HCC) (Primary Dx) [place] [id number] [place] [address] Allergies Active Allergy Reactions [...] as of this encounter (statuses as of 11/29/2018) Medications Medication Sig Dispensed Refills Start Date End Date Status Quetiapine Fumarate Take 300 mg by 0 Active (SEROQUEL XR) 300 MG mouth EVERY Oral TABLET SR 24 HR BEDTIME. Escitalopram Oxalate Take 10 mg by 0 Active (LEXAPRO PO) mouth EVERY BEDTIME. busPIRone (BUSPAR) Take 15 mg by 0 Active 15 MG Oral Tab mouth TWICE DAILY. albuterol HFA Take 2 Puffs by 1 Inhaler 0 04/25/2017 Active (VENTOLIN HFA) 108 inhalation EVERY (90 Base) MCG/ACT FOUR HOURS Inhalation Aero Soln NEEDED (wheezing). zolpidem (AMBIEN) 10 Take 10 mg by 0 Active MG Oral Tab mouth EVERY BEDTIME NEEDED. Ferrous Sulfate Take 1 Tab by 0 Active (IRON SUPPLEMENT PO) mouth DAILY. diphenoxylate-atropi Take 1 Tab by 40 Tab 0 06/21/2018 Active ne (LOMOTIL) mouth FOUR TIMES 2.5-0.025 MG Oral DAILY NEEDED Tab for diarrhea. Max Daily Amount: 4 Tabs. ketoconazole 1 Appl by Topical 1 Tube 0 11/17/2018 12/01/2018 Active (NIZORAL) 2 % Apply route DAILY for 14 externally days. 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 Dr. Cardenas Hypertension documented as of this encounter (statuses as of 11/29/2018) Immunizations Name Administration Dates Next Due Cortrosyn [...] Sign Reading Time Taken Comments Blood Pressure 138/77 11/29/2018 12:36 PM EDT Pulse 75 11/29/2018 12:36 PM EDT Temperature 36.5 11/29/2018 12:36 PM EDT C (97.7 F) Respiratory Rate 16 11/29/2018 12:36 PM EDT Oxygen Saturation - - Inhaled Oxygen Concentration - - Weight 99 kg (218 lb 3.2 oz) 11/29/2018 12:36 PM EDT Height 157.5 cm (5' 2") 11/29/2018 12:36 PM EDT Body Mass Index 39.91 11/29/2018 12:36 PM EDT documented in this encounter Patient Instructions Patient InstructionsCollins Bernstein PA-C - 11/29/2018 1:00 PM EDTDoes the patient require pre-auth and teach scheduling for a new treatment program: No Return appointments and infusion type:In 4 weeks for labs, office visit, and treatment chair Infusion/Injection type and timing: TODAY, 11/29/2018 - lanreotide In 4 week - lanreotide Provider type: Dr. Ram Labs: At next visit - CBC, CMP, chromogranin A Labs to be done: Same day as next appointment >> Please arrive 30 minutes prior to your scheduled appointment to have your blood work completed Port/PICC:No Radiology:None Referrals: None Patient Instructions: - Please don't hesitate to contact the hematology/oncology department should you have any questions orconcerns! Contact Information: Hours: Tuesday-Tuesday 8 am - 5 pm Phone numbers: [place] [phone] [place] [phone] For assistance after hours, on weekends, or on holidays, please call [phone] and ask tuft machine operator for the Oncologist biofuels production manager. If you have an acute emergency call 911 documented in this encounter Progress Notes Collins Bernstein PA-C - 11/29/2018 1:00 PM EDT PATIENT: Cristin Cota : 1975 DATE OF SERVICE: 11/29/2018 REFERRING PRACTITIONER: Collins Bernstein PRIMARY CARE PROVIDER: Aleksandra Miles Chief Complaint Patient presents with Follow Up 4 week follow up labsdone Chemotherapy HISTORY OF PRESENT ILLNESS: Cristin Cota is a 43-y.o. female with history of recurrent carcinoid tumor. In 2004, patient was found to have an irregular tumor in her terminal ileum found during upper endoscopy. In June 2004, patient underwent resection of the tumor. 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 In 2017, patient developed transaminitis and ultrasound of her [...] diagnosed with prolactinoma with microadenoma pituitary gland. Patient was seen at [facility] GI surgery on 11/28/2018. Options were reviewed with patient but she is going to postpone making decisions until after the new year (2019). Patient reports that she is feeling well and offers no complaints. EGOG PS: 0 Pain: 0/10 Past Medical History: Diagnosis Date Asthma Back pain CHRONIC BACK PAIN Bipolar disorder (HCC) [facility]. Dr. 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 COPD (chronic obstructive pulmonary disease) (HCC) GERD (gastroesophageal reflux disease) EGD 2011 Hyperparathyroidism (HCC) Hypertension Obesity KEVIN (obstructive sleep apnea) 09/27/2013 Auto CPAP (4-20 cm) with heated humidification through [employer] [facility]- on [employer] softwear Prolactinoma (HCC) Dr. Mendenhall Past Surgical History: Procedure Laterality Date COLONOSCOPY DIAGNOSTIC KNEE ARTHROSCOPY L kne meniscus repair LAPAROSCOPIC TUBAL LIGATION NM APPENDECTOMY NM PART REMOVAL COLON W ANASTOMOSIS R, for carcinoid. Dr. Almazan NM RE-EXPLORE PARATHYROIDS NM REMOVAL GALLBLADDER Family History Problem Relation Age [...] PO) Take 1 Tab by mouth DAILY. ketoconazole (NIZORAL) 2 % Apply externally Cream 1 Appl by Topical route DAILY for 14 days. Quetiapine Fumarate (SEROQUEL XR) 300 MG Oral [...] Last attempt to quit: 03/06/2014 Years since quittin.7 Smokeless tobacco: Never Used Substance and Sexual Activity Alcohol use: No Alcohol/week: 0.0 standard drinks Drug use: No Sexual activity: Yes Partners: Male Lifestyle Physical activity: Days per week: Not on file Minutes per session: Not on file Stress: Not on file Relationships Social connections: Talks on phone: Not on file Gets together: Not on file Attends mormon service: Not on file Active member of [...] Negative for chills, fever and weight loss. Mild night sweat HENT: Negative for hearing loss, nosebleeds, sore throat and tinnitus. Eyes: Negative for blurred vision and double vision. Respiratory: Negative for cough, shortness of breath and wheezing. Cardiovascular: Negative for chest pain and leg swelling. Gastrointestinal: Negative for abdominal pain, blood in stool, constipation, diarrhea, nausea and vomiting. Genitourinary: Negative for dysuria, frequency, hematuria and urgency. Musculoskeletal: Negative for myalgias. Skin: Negative for rash. Neurological: Negative for tremors and sensory change. Same pattern and severity of headaches Endo/Heme/Allergies: Does not bruise/bleed easily. Psychiatric/Behavioral: Negative for depression. The patient is not nervous/ anxious. PHYSICAL EXAMINATION: VITALS: BP 138/77 (BP Location: Left arm, Patient Position: Sitting) | Pulse 75 | Temp 97.7 F(36.5 C) (Temporal) | Resp 16 | Ht 5' 2" (1.575 m) | Wt 218 lb 3.2 oz (99 kg) | BMI 39.91 kg/m Body mass index is 39.91 kg/m . Physical Exam Constitutional: Appearance: She is well-developed. HENT: Head: Normocephalic and atraumatic. Nose: Nose normal. Eyes: General: No scleral icterus. Conjunctiva/sclera: Conjunctivae normal. Neck: Musculoskeletal: Neck supple. Thyroid: No thyromegaly. Cardiovascular: Rate and Rhythm: Normal rate and regular rhythm. Heart sounds: Normal heart sounds. No murmur. No friction rub. No gallop. Pulmonary: Effort: Pulmonary effort is normal. No respiratory distress. Breath sounds: Normal breath sounds. No wheezing or rales. Abdominal: General: Bowel sounds are normal. There is no distension. Palpations: Abdomen is soft. There is no mass. Tenderness: There is no tenderness. There is no guarding or rebound. Lymphadenopathy: Cervical: No cervical adenopathy. Skin: General: Skin is warm and dry. Neurological: Mental Status: She is alert. Cranial Nerves: No cranial nerve deficit. LABORATORY DATA: Lab Results Component Value Date WBC 10.43 (H) 11/29/2018 RBC 5.03 11/29/2018 HGB 13.6 11/29/2018 HCT 42.7 11/29/2018 MCV 84.9 11/29/2018 MCH 27.0 11/29/2018 MCHC 31.9 (L) 11/29/2018 PLAT 238 11/29/2018 MPV 10.8 11/29/2018 RDW 13.4 11/29/2018 LYMPHOCYTEPE 27.5 11/29/2018 MONOCYTEPE 4.8 11/29/2018 EOSINOPHILPE 1.2 11/29/2018 BASOPHILPE 0.4 11/29/2018 NEUTROPHILAB 6.85 (H) 11/29/2018 LYMPHOCYTEAB 2.87 11/29/2018 MONOCYTEAB 0.50 11/29/2018 EOSINOPHILAB 0.12 11/29/2018 BASOPHILAB 0.04 11/29/2018 Lab Results Component Value Date NA 139 11/29/2018 K 4.1 11/29/2018 CL 106 11/29/2018 CO2 25 11/29/2018 GLUCOSE 143 (H) 11/29/2018 BUN 10 11/29/2018 CREATININE 0.7 11/29/2018 CALCIUM 9.6 11/29/2018 TP 7.3 11/29/2018 ALBUMIN 4.1 11/29/2018 AST 51 (H) 11/29/2018 ALT 74 (H) 11/29/2018 ALK 109 11/29/2018 TBILI 0.4 11/29/2018 EGFR >60 11/29/2018 Lab Results Component Value Date CHROMO 50 11/01/2018 Pathology: - Liver 05/03/18: Imaging: - NM SPECT/CT body octreoscan 06/01/18: - MRI brain with and without contrast 05/26/2018: - CT chest with IV contrast 05/18/2018: - Mary 08/29/2018: Updated Mary note was sent to scanning IMPRESSION/PLAN: Cristin was seen today for follow up 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: diagnosed in 2004 status post biopsy-proven disease , recurrent April 2018 - Today, 11/29/2018, continue monthly palliative lanreotide - Patient to discuss plan for follow up and possible surgery at [place] in early 2019 - CBC, CMP, chromogranin A at next visit - Follow up in 4 weeks for labs and office visit with physician 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 Patient Instructions Does the patient require pre-auth and teach scheduling for a new treatment program: No Return appointments and infusion type:In 4 weeks for labs, office visit, and treatment chair Infusion/Injection type and timing: TODAY, 11/29/2018 - lanreotide In 4 week - lanreotide Provider type: Dr. Ram Labs: At next visit - CBC, CMP, chromogranin A Labs to be done: Same day as next appointment >> Please arrive 30 minutes prior to your scheduled appointment to have your blood work completed Port/PICC:No Radiology:None Referrals: None Patient Instructions: - Please don't hesitate to contact the hematology/oncology department should you have any questions orconcerns! Contact Information: Hours: Tuesday-Tuesday 8 am - 5 pm Phone numbers: [place] [phone] [place] [phone] For assistance after hours, on weekends, or on holidays, please call [phone] and ask tuft machine operator for the Oncologist biofuels production manager. If you have an acute emergency call 911 Author: Collins Bernstein PA-C 11/29/2018 15:32 documented in this encounter Plan of Treatment Date Type Specialty Care Team Description 12/27/2018 Office Visit Hematology and Oncology Kelsea Ram MD [address] [place] [address] [phone] 12/27/2018 Appointment Infusion Therapy Name Type Priority Associated Diagnoses Date/Time CHROMOGRANIN A Lab Routine Metastatic malignant 11/29/2018 12:31 PM EDT neuroendocrine tumor to liver (HCC) Name Type Priority Associated Diagnoses Order Schedule CHROMOGRANIN A Lab Routine Metastatic malignant Expected: 11/28/2018 neuroendocrine tumor to (Approximate), liver (HCC) Expires: 05/27/2019 CBC WITH DIFFERENTIAL Lab STAT Metastatic malignant Expected: 11/30/2018 neuroendocrine tumor to (Approximate), liver (HCC) Expires: 11/28/2019 COMPREHENSIVE METABOLIC Lab STAT Metastatic malignant Expected: 11/29/2018 PANEL neuroendocrine tumor to (Approximate), liver (HCC) Expires: 11/28/2019 CHROMOGRANIN A Lab Routine Metastatic malignant Expected: 11/29/2018 neuroendocrine tumor to (Approximate), liver (HCC) Expires: 05/28/2019 Health Maintenance Due Date Last Done Comments MAMMOGRAM (SCREENING) 04/27/2018 04/27/2017, 06/18/2015, 03/27/2014 (Declined), Additional history exists INFLUENZA VACCINE (#1) 2019 11/26/2013 Postponed from 10/08/2018 (Other) DEPRESSION SCREENING 07/08/2019 07/07/2018 DIABETES SCREENING 11/02/2019 11/01/2018, 10/04/2018, 09/06/2018, Additional history exists LIPID DISORDER SCREENING 11/02/2019 11/01/2018, 04/25/2017, 04/16/2015, Additional history exists COLONOSCOPY SCREENING 11/27/2019 11/26/2014, 07/18/2013, 07/21/2010, Additional history exists [...] Problems Progress Blood Pressure Blood Pressure Hypertension 138/77 No Ginger, < 140/90 (11/29/2018 Aleksandra, 12:36 PM EDT) Note: Hypertension Care Plan Based on the [...] Educational Resources. record my blood pressure results. [employer] is safe and secure way for you [...] Educational Resources: National Heart, Lung, & Blood [place] http://nhlbi.nih.gov/hbp/index.html The DASH Diet Eating Plan http://www.nhlbi.nih.gov/health/health-topics/ topics/dash/ Academy of Nutrition & DIetetics http://eatright.org National Smoking Cessation Site http://smokefree.gov Blood Pressure < Blood Pressure 138/77 (11/29/2018 No Aleksandra Miles, 140/90 12:36 PM EDT) Note: This is an individualized treatment (blood [...] Summaries. Keep a regular sleep schedule Lifestyle Aleksandra Riley MD Note: This is an individualized lifestyle [...] Associated Diagnosis Comments CBC WITH DIFFERENTIAL STAT 11/29/2018 12:31 Metastatic malignant Results for this PM EDT neuroendocrine tumor procedure are in to liver (HCC) the results section. COMPREHENSIVE STAT 11/29/2018 12:31 Metastatic malignant Results for this METABOLIC PANEL PM EDT neuroendocrine tumor procedure are in to liver (HCC) the results section. documented in this encounter Results COMPREHENSIVE METABOLIC PANEL (11/29/2018 12:31 PM EDT) Sodium 139 134 - 145 mmol/L [facility] Potassium 4.1 3.5 - 5.1 mmol/L [facility] Chloride 106 98 - 107 mmol/L [facility] CO2 25 22 - 30 mmol/L [facility] Calcium 9.6 8.3 - 10.1 mg/dl [facility] Albumin 4.1 3.5 - 5.0 g/dl [facility] BUN 10 7 - 17 mg/dl [facility] Creatinine 0.7 0.7 - 1.2 mg/dl [facility] Glucose 143 (H) 70 - 99 mg/dl [facility] Total Protein 7.3 6.3 - 8.2 g/dl [facility] Total Bilirubin 0.4 0.0 - 1.1 MG/DL [facility] AST 51 (H) 15 - 46 U/L [facility] ALT 74 (H) 9 - 52 U/L [facility] Alkaline 109 40 - 150 U/L [facility] Phosphatase GROUP LAB[facility]ATORY eGFR >60 See Interpretation [facility] Comment: Below ml/min/1.73ml GROUP Estimated GFR Interpretation: Sq LABORATORY Above 60ml/min/1.73m2 = Normal Renal Function 30-59 ml/min/1.73m2 = Stage 3 Chronic Kidney Disease 15-29 ml/min/1.73m2 = Stage 4 Chronic Kidney Disease Less than 15 ml/min/1.73m2 = Stage 5 Chronic Kidney Disease The GFR value is calculated using the Modification of Diet in Renal Disease ( MDRD) Study Equation which can be found at: https://www.kidney.org/content/gnfg-btccr-zghyjane BUN/Creatinine 14 6 - 22 RATIO [facility]ORY Anion Gap 8 3 - 11 mmol/L [facility] A/G Ratio 1.3 0.8 - 2.0 ratio [facility] Specimen Blood Performing Organization Address City/State/Zipcode Phone Number [facility] [address] [facility] [place] [id number] CBC WITH DIFFERENTIAL (11/29/2018 12:31 PM EDT) WBC Count 10.43 (H) 3.98 - 10.04 [facility] K/uL LABORATORY RBC Count 5.03 3.93 - 5.22 M/UL [facility] Hemoglobin 13.6 11.2 - 15.7 g/dL [facility] Hematocrit 42.7 34.1 - 44.9 % [facility] MCV 84.9 79.4 - 94.8 FL [facility] MCH 27.0 25.6 - 32.2 PG [facility] MCHC 31.9 (L) 32.2 - 35.5 g/dL [facility] Platelet Count 238 182 - 369 K/uL [facility] MPV 10.8 9.4 - 12.3 FL [facility] RDW 13.4 11.7 - 14.4 % [facility] Neutrophil % 65.6 34.0 - 71.1 % [facility] Lymphocyte % 27.5 19.3 - 51.7 % [facility] Monocyte % 4.8 4.7 - 12.5 % [facility] Eosinophil % 1.2 0.7 - 5.8 % [facility] Basophil % 0.4 0.1 - 1.2 % [facility] nRBC % 0.0 0.0 - 0.2 % [facility] Neutrophil # 6.85 (H) 1.56 - 6.13 K/UL [facility] Lymphocyte # 2.87 1.18 - 3.74 K/UL [facility] Monocyte # 0.50 0.24 - 0.86 K/UL [facility] Eosinophil # 0.12 0.04 - 0.36 K/UL [facility] Basophil # 0.04 0.01 - 0.08 K/UL [facility] Immature Gran % 0.5 (H) 0.0 - 0.4 % [facility] Immature Gran # 0.05 (H) 0.00 - 0.03 K/uL [facility] NRBC # 0.00 0.00 - 0.12 K/uL [facility] Specimen Blood Performing Organization Address City/State/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
--- OUTSIDE RECORDS SUMMARY | 2019-01-17 09:19 | XMS REPORT | Summary of Care ---
:1975 Author Organization [facility] Address [address] [place] [address] Care Team Providers Name Role Phone Aleksandra Miles Primary Care Provider Reason for Visit (Routine) Status Reason Specialty Diagnoses / Referred By Referred To Procedures Contact Contact Authorized Infusion Therapy Diagnoses Other secondary neuroendocrine tumors [facility] Infusion Procedures [place] LANREOTIDE INJECTION MD [facility] [address] [place] [address] [place] [address] [place] Phone: [phone] Encounter Details Date Type Department Care Team Description 11/29/2018 Hospital Encounter [facility] Infusion Center Outpatient [address] [place] [phone] Allergies Active Allergy Reactions Severity Noted Date [...] as of this encounter (statuses as of 12/01/2018) Medications Medication Sig Dispensed Refills Start Date [...] DAILY for 14 externally days. 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 Dr. Cardenas Hypertension documented as of this encounter (statuses as of 12/01/2018) Immunizations Name Administration Dates Next Due Cortrosyn [...] Signs Not on filedocumented in this encounter Plan of Treatment Date Type Specialty Care Team Description 12/27/2018 Office Visit Hematology and Oncology Kelsea Ram MD [address] [place] [id number] 12/27/2018 Appointment Infusion Therapy Health Maintenance Due Date [...] Educational Resources: National Heart, Lung, & Blood [place] http://nhlbi.nih.gov/hbp/index.html The DASH Diet Eating Plan http://www.nhlbi.nih.gov/health/health-topics/ [...] Date Dose Rate Site lanreotide (SOMATULINE) Given 11/29/2018 1:25 PM EDT 120 mg Other injection 120 mg 120 mg, Subcutaneous, [id number], First dose on Tue11/29/18 at 1400, Until Discontinued documented in this encounter documented as of this encounter
[2019-01-17 09:27] LABS: Albumin 3.6 g/dL (3.2-5.2); Albumin/Globulin Ratio 1.7 (1-3); BUN/Creatinine Ratio 18.7 (8-20); Calcium 8.2 mg/dL (8.6-10.3); EGFR African American 101.1 (>60); EGFR Non-African American 83.6 (>60); Globulin 2.1 g/dL (2-4); HDL Cholesterol 35.3 mg/dL; Potassium 3.9 mmol/L (3.5-5.0); Total Bilirubin 0.2 mg/dL (0.2-1.0); Total Protein 5.7 g/dL (6.4-8.9)
--- NOTE | 2019-01-17 09:29 | ED ---
Neurological HPI - HPI Summary HPI Summary: Patient is a 43 y/o F presenting to [facility] via EMS with complaints of slurred speech, right-sided facial numbness and droop, blurred vision, and RUE and RLE numbness and weakness. She reports that she awoke with Sx at around 0730 . Patient went to sleep at 0100 01/17/19. Therefore, last known well is 0100 01/17/19 and patient is not considered a TPA candidate as she is outside of the time window. PMHx of TIA, stage 4 liver cancer for which the patient is not on chemotherapy or radiation therapy, HTN, and HLD reported. She is not on blood thinners. Patient is a current smoker and uses approximately two packs daily. She endorses occasional alcohol use but denies substance usage. Home medications and allergies are reviewed. EMS initiated jewel thompson from field at 0811, EMS arrival at 0821, Dr. Hernandez and Dr. Steve at bedside upon EMS arrival. Initial NIH obtained and patient immediately wheeled to [place]. - History of Current Complaint Chief Complaint: EDNeurologicalDeficit Stated Complaint: CODE CEDENO Time Seen by Provider: 01/17/19 08:24 Hx Obtained From: Patient, EMS Hx Last Menstrual Period: 07/18/17 Onset/Duration: Still Present Timing: Constant Neurological Deficit Location: Facial, RUE, RLE Pain Intensity: 0 Pain Scale Used: 0-10 Numeric Character: Numbness/Tingling, Motor Weakness, Impaired Speech Associated Signs and Symptoms: Positive: Weakness, Impaired Speech, Numbness - Allergy/Home Medications Allergies/Adverse Reactions: Allergies Allergy/AdvReac Type Severity Reaction Status Date / Time aspirin Allergy Heartburn Verified 12/05/18 16:15 cephalexin [From Keflex] Allergy Anaphylatic Verified 12/05/18 16:15 Shock divalproex sodium Allergy See Comment Verified 12/05/18 16:15 [From Depakote] erythromycin base Allergy Anaphylatic Verified 12/05/18 16:15 Shock fentanyl Allergy Agitation Verified 12/05/18 16:15 ibuprofen Allergy Heartburn Verified 12/05/18 16:15 morphine Allergy Hives Verified 12/05/18 16:15 moxifloxacin [From Avelox] Allergy Anaphylatic Verified 12/05/18 16:15 Shock Penicillins Allergy Anaphylatic Verified 12/05/18 16:15 Shock pseudoephedrine Allergy Hives Verified 12/05/18 16:15 [From Sudafed] Home Medications: Home Medications Albuterol HFA INHALER* [Ventolin HFA Inhaler*] 2 puff INH Q4H PRN 01/17/19 [ History Confirmed 01/17/19] Diphenoxylat/Atrop 2.5-0.025M* [Lomotil TAB*] 1 tab PO QID PRN 01/17/19 [ History Confirmed 01/17/19] Escitalopram * [Lexapro 10 mg (NF)] 10 mg PO BEDTIME 01/17/19 [History Confirmed 01/17/19] Ferrous Sulfate TAB* 65 mg PO DAILY 01/17/19 [History Confirmed 01/17/19] Octreotide Acetate* 50 mcg SUBCUT ONCE 01/17/19 [History Confirmed 01/17/19] oxyCODONE TAB* [Roxycodone TAB 5 mg*] 5 mg PO Q4H PRN 01/17/19 [History Confirmed 01/17/19] PMH/Surg Hx/FS Hx/Imm Hx Endocrine/Hematology History: Reports: Hx Thyroid Disease, Other Endocrine/ Hematological Disorders - MEN1 Denies: Hx Diabetes Cardiovascular History: Reports: Hx Hypertension Denies: Hx Congestive Heart Failure, Hx Pacemaker/ICD Respiratory History: Reports: Hx Asthma, Hx Chronic Obstructive Pulmonary Disease (COPD) - chronic bronchitis, Hx Sleep Apnea GI History: Reports: Hx Gastroesophageal Reflux Disease, Hx Irritable Bowel, 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 Denies: Hx Ulcer History: Denies: Hx Renal Disease Sensory History: Denies: Hx Legally Blind, Hx Deafness, Hx Hearing Aid Opthamlomology History: Denies: Hx Legally Blind Neurological History: Reports: Hx Transient Ischemic Attacks (TIA) Denies: Other Neuro Impairments/Disorders Psychiatric History: Reports: Hx Bipolar Disorder Denies: Hx Eating Disorder, Hx Panic Disorder, Hx of Violent Episodes Against Others - NOT FOR 18 YEARS - Cancer History Cancer Type, 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 - Surgical History Surgery Procedure, Year, and Place: left knee reconstruction and meniscal repair , tumor removal from bowel duct, gallbladder, tubal ligation, appendix, PARATHYROIDECTOMY 07/2012 Infectious Disease History: No Infectious Disease History: Denies: Hx Hepatitis, Hx Human Immunodeficiency Virus (HIV), History Other Infectious Disease, Traveled Outside the [place] in Last 30 Days - Family History Known Family History: Positive: Cardiac Disease, Hypertension, Diabetes - Social History Alcohol Use: None Hx Substance Use: No Substance Use Type: Reports: None Smoking Status (MU): Heavy Every Day Tobacco Smoker Type: Cigarettes Amount Used/How Often: 1 1/2 PPD Length of Time of Smoking/Using Tobacco: 26 YRS Review of Systems Negative: Fever - 98.5 F temporal temp on vitals Positive: Weakness, Numbness, Slurred Speech All Other Systems Reviewed And Are Negative: Yes Physical Exam - Summary Physical Exam Summary: VITAL SIGNS: Reviewed. GENERAL: Patient is a well-developed and obese female who is lying comfortable in the stretcher. Patient is not in any acute respiratory distress. She appears slightly lethargic. HEAD AND FACE: No signs of trauma. No ecchymosis, hematomas or skull depressions. No sinus tenderness. EYES: PERRLA, EOMI x 2, No injected conjunctiva, no nystagmus. EARS: Hearing grossly intact. Ear canals and tympanic membranes are within normal limits. MOUTH: Oropharynx within normal limits. Dry oral mucosa noted. NECK: Supple, trachea is midline, no adenopathy, no JVD, no carotid bruit, no c- spine tenderness, neck with full ROM. CHEST: Symmetric, no tenderness at palpation. LUNGS: Clear to auscultation bilaterally. No wheezing or crackles. CVS: Regular rate and rhythm, S1 and S2 present, no murmurs or gallops appreciated. ABDOMEN: Soft, non-tender. No signs of distention. No rebound, no guarding, and no masses palpated. Bowel sounds are normal. EXTREMITIES: FROM in all major joints, no edema, no cyanosis or clubbing. NEURO: Alert and oriented x 3. RUE weakness, decreased sensation, GCS 15, NIH 7 Triage Information Reviewed: Yes Vital Signs On Initial Exam: Initial Vitals Pulse Ox 96 01/17/19 08:24 Vital Signs Reviewed: Yes - [place] Coma Scale Best Eye Response: 4 - Spontaneous Best Motor Response: 6 - Obeys Commands Best Verbal Response: 5 - Oriented Coma Scale Total: 15 Procedures - Sedation Patient Received Moderate/Deep Sedation with Procedure: No Diagnostics - Vital Signs Vital Signs Temp Pulse Resp BP Pulse Ox 01/17/19 08:40 98.5 F 63 16 154/94 97 01/17/19 08:24 96 - Laboratory Lab Results: Lab Results 01/17/19 01/17/19 Range/Units 08:44 08:45 WBC 7.0 (3.5-10.8) 10^3/uL RBC 4.40 (3.70-4.87) 10^6 /uL Hgb 12.0 (12.0-16.0) g/dL Hct 36 (35-47) % MCV 81 (80-97) fL MCH 27 (27-31) pg MCHC 34 (31-36) g/dL RDW 14 (10-15) % Plt Count 212 (150-450) 10^3/uL MPV 8.5 (7.4-10.4) fL Neut % (Auto) 64.6 % Lymph % (Auto) 27.3 % [place] % (Auto) 6.9 % Eos % (Auto) 0.9 % Baso % (Auto) 0.3 % Absolute Neuts (auto) 4.5 (1.5-7.7) 10^3/ul Absolute Lymphs (auto) 1.9 (1.0-4.8) 10^3/ul Absolute Monos (auto) 0.5 (0-0.8) 10^3/ul Absolute Eos (auto) 0.1 (0-0.6) 10^3/ul Absolute Basos (auto) 0.0 (0-0.2) 10^3/ul Absolute Nucleated RBC 0.0 10^3/ul Nucleated RBC % 0.0 POC Glucose (mg/dL) 125 H (70-100) mg/dL Result Diagrams: 01/17/19 08:45 01/17/19 08:45 Lab Statement: Any lab studies that have been ordered have been reviewed, and results considered in the medical decision making process. - Radiology CXR Radiology Interpretation Completed By: Radiologist Summary of Radiographic Findings: CXR. IMPRESSION: CARDIOMEGALY. RIGHT BASILAR AIRSPACE DISEASE AND LEFT BASILAR AIRSPACE DISEASE. CONSISTENT WITH PNEUMONIA. THIS REPORT WAS REVIEWED BY ED PHYSICIAN. - CT BRAIN CT CT Interpretation Completed By: Radiologist Summary of CT Findings: BRAIN CT IMPRESSION: NO ACUTE INTRACRANIAL PATHOLOGY. THIS REPORT WAS REVIEWED BY ED PHYSICIAN. HEAD CTA CT Interpretation Completed By: Radiologist Summary of CT Findings: HEAD CTA IMPRESSION: 1. NO INTERNAL CAROTID ARTERY STENOSIS BY NASCET CRITERIA. 2. NO ANEURYSM, VASCULAR MALFORMATION, OCCLUSION , OR STENOSIS OF THE VISUALIZED. INTRACRANIAL CIRCULATION. THIS REPORT WAS REVIEWED BY ED PHYSICIAN. - EKG 0935 Cardiac Rate: Bradycardia - rate of 59 BPM EKG Rhythm: Sinus Bradycardia Summary of EKG Findings: EKG showed sinus bradycardia with rate of 59 BPM, no ST elevations, T-wave inversion in V1-V4. ED physician has reviewed and interpreted this EKG. NIH Scale - NIH Scale Level of Consciousness: Alert/Keenly Responsive Ask Patient the Month and His/Her Age: Both Correct Ask Pt to Open/Close Eyes and Heel Nail Rasper/Release Non-Paretic Hand: Both Correctly Best Gaze (Only Horizontal Eye Movement): Partial Gaze Palsy Visual Field Testing: Partial Hemianopia Facial Paresis-Pt to Smile & Close Eyes or Grimace Symmetry: Minor Paralysis Motor Function - Right Arm: Drifts LT 10 seconds Motor Function - Left Arm: No Drift-Holds 10 Seconds Motor Function - Right Leg: Drifts LT 10 seconds Motor Function - Left Leg: No Drift-Holds 10 Seconds Limb Ataxia-Must be out of Proportion to Weakness Present: Absent Sensory (Use Pinprick to Test Arms/Legs/Trunk/Face): Pinprick Less on Affected Best Language (Describe Picture, Name Items): No Aphasia Dysarthria (Read Several Words): Slurs Some Words Extinction and Inattention: No Abnormality Total Score: 7 Course/Dx - Course Assessment/Plan: This patient is a 43-year-old female who presents to the emergency department via ambulance with chief complaint of having slurred speech and right-sided numbness and weakness. She reports that she woke up approximately 7:30 AM with the symptoms. She went to sleep approximately 1 AM this morning with no symptoms. She also reports facial drooping. Code thompson was initiated by EMS at 8:11AM in the field. Patient arrived at the emergency department at 8:[address] Hernandez from neurology at bedside. Dr. Hernandez recommends a head CT and CTA of the neck without any blood work. Patient was brought to the CT suite. At 8:[address] Poe from radiology reads as no acute intracranial pathology. Past medical history for the patient depression, insomnia, TIA, liver cancer is stage IV, hypertension, dyslipidemia. Dr. Hernandez recommends Plavix. Head CT IMPRESSION: NO ACUTE INTRACRANIAL PATHOLOGY. CTA IMPRESSION: 1. NO INTERNAL CAROTID ARTERY STENOSIS BY NASCET CRITERIA. 2. NO ANEURYSM, VASCULAR MALFORMATION, OCCLUSION, OR STENOSIS OF THE VISUALIZED INTRACRANIAL CIRCULATION. Blood work without any significant abnormality except for glucose of 119, calcium 8.2, total protein 5.7. At this time Dr. Hernandez recommends for the patient to be admitted to the hospital services. I discuss my physical exam and test results with Dr. Kumar from the hospitalist services and she agrees to admit the patient to her services. The patient is hemodynamically stable alert and oriented x 3. - Diagnoses Provider Diagnoses: CVA (cerebral vascular accident) During the Visit The Following Alert/Code Occurred: Code Cedeno - EMS initiated code thompson from field at 0811, EMS arrival at 0821, Dr. Hernandez and Dr. Steve at bedside upon EMS arrival. Initial NIH obtained and patient immediately wheeled to CT. - Physician Notifications Discussed Care Of Patient With: Gilmer Hernandez Time Discussed With Above Provider: 08:21 Instructed by Provider To: Other - 0821 - Dr. Hernandez at bedside to evaluate the patient. Dr. Hernandez notes the patient is not a TPA candidate as she is outside the window, CTA, Plavix, and admission is recommended. 0839 - Dr. Garnett communicates negative brain CT. 1057 - Patient's case was discussed with Dr. Kumar, Dr. Kumar accepts for admssion and places admit orders at this time. - Critical Care Time Critical Care Time: 30-74 min - 30 minutes CCT Discharge ED - Sign-Out/Discharge Documenting (check all that apply): Patient Departure - admit All imaging exams completed and their final reports reviewed: Yes - Discharge Plan Condition: Stable Disposition: ADMITTED TO [facility] - Billing Disposition and Condition Condition: STABLE Disposition: Admitted to [facility] - Attestation Statements Document Initiated by Scribe: Yes Documenting Scribe: ROGELIO GRAY Provider For Whom Gem is Documenting (Include Credential): DEIDRE STEVE MD Scribe Attestation: ROGELIO Escudero, scribed for DEIDRE STEVE MD on 01/18/19 at 1055. Scribe Documentation Reviewed: Yes Provider Attestation: The documentation as recorded by the scribeROGELIO accurately reflects the service I personally performed and the decisions made by me, DEIDRE STEVE MD Status of Scribe Document: Viewed
[2019-01-17] MEDS ORDERED: Albuterol HFA INHALER* 8 gm MDI INH PRN (10:49)
[2019-01-17] MEDS ORDERED: oxyCODONE TAB* 5 MG TAB PO PRN (10:49)
[2019-01-17] MEDS ORDERED: Diphenoxylat/Atrop 2.5-0.025M* 1 TAB PO PRN (10:49)
--- NOTE | 2019-01-17 11:57 | CONS ---
NEUROLOGY CONSULTATION REPORT: DATE OF CONSULT: 01/17/19 CONSULTING PROVIDER: Dr. Steve for which he activated code thompson. REASON FOR CONSULT: Right-sided weakness. CHIEF COMPLAINT: Right-sided numbness and weakness. HISTORY OF PRESENT ILLNESS: Ms. Cristin Cota is a 43-year-old right-handed female who has a past medical history of depression, bipolar disorder, COPD, tobacco use, hypertension, and history of carcinoid tumor of the bile duct, who woke up with sudden onset of right face, arm, and leg numbness associated with right-sided weakness. The symptoms onset was at 7:30. Last known well was 1 a.m. on 01/17/19 right before she went to sleep. She has had similar presentation in the past in [address] for [address] Kumar's note it was thought that the patient may have had conversion disorder in the setting of an acute stressor. The patient denied any headaches, but then later on reported a mild frontal headache that is nonradiating. She denied any double vision or blurred vision. She denied any swallowing difficulty. She denied any slurred speech. She denied any impairment in her bowel or bladder functions. She denied any chest pain, shortness breath, or palpitation. CT head was immediately obtained and showed no acute intracranial abnormalities. A CTA head and neck showed no large vessel occlusion. The patient's [id number] glucose was obtained and it was 125. Her WBC was 7.4, hemoglobin of 12, hematocrit of 36, platelet count of 212. NIH stroke scale is 6 for mild right facial asymmetry, numbness, slurred speech, with slight eye deviation towards her right, hemisensory loss on the right, and mild dysmetria. Her NIH stroke scale improved significantly after the CAT scan with a score of 2 for slight slurred speech and right facial and arm numbness and reduced sensation. TPA decision time, the patient was deemed not a candidate for IV alteplase therapy at 8:30 a.m. due to wake-up stroke. She does not have an LVO on CTA, so she is not a candidate for mechanical thrombectomy. The patient did not have any episode of loss of consciousness or awareness. PAST MEDICAL HISTORY: Depression, bipolar disorder, chronic obstructive pulmonary disease, hypertension, parathyroidectomy, history of carcinoid tumor of bile duct, seizure that occurred 20 years ago. MEDICATIONS: 1. Quetiapine 300 mg p.o. at bedtime. 2. Zolpidem 10 mg p.o. bedtime. 3. Buspirone 50 mg p.o. b.i.d. 4. Oxycodone 5 mg p.o. every 4 hours as needed. 5. Ferrous sulfate 65 mg p.o. daily. 6. Lomotil 1 tablet p.o. 4 times a day as needed. 7. Albuterol 2 puffs inhaled every 4 hours. 8. Octreotide 50 mcg subcutaneous once. 9. Escitalopram 10 mg p.o. at bedtime. ALLERGIES: ASPIRIN, CEPHALEXIN, DEPAKOTE, ERYTHROMYCIN. FAMILY HISTORY: No family history of stroke or seizures. SOCIAL HISTORY: The patient works at [employer]. She smokes 1 pack per day for over 20 years. She denied any alcohol use. She denied any recreational drug use. She lives with her 21-year-old son. REVIEW OF SYSTEMS: A 14-point review of system was obtained and otherwise negative except for what was mentioned in the HPI. PHYSICAL EXAM: Vitals: Temperature of 98.5, pulse of 63, respiratory rate of 13, oxygen saturation of 98, blood pressure 170/104. Please note that the patient does not take any antihypertensive agents nor does she take aspirin or any antithrombotic agents. General: Ill-appearing overweight female in no acute distress. She has her eyes closed during examination. She has poor eye contact. She looks away from the examiner. Head: Atraumatic normocephalic without any obvious abnormality. Neck is supple and symmetric with no carotid bruit. Chest: Clear to auscultation bilaterally with no wheezing or rhonchi. Cardiovascular: Regular rate and rhythm with normal S1, S2. Extremities: Normal range of motion with no cyanosis or edema. Skin: No skin lesions or lacerations. Psychiatry: Flat affect, depressed mood. The patient denied any suicidal or homicidal ideation. Neurological Examination: Mental status: Awake, alert; oriented to person, place, time, and general circumstances. The patient has mild slurred speech that fluctuates. Cranial Nerves: Pupils equal , round, and reactive to light. Extraocular muscles are intact. There is slight facial asymmetry , but that fluctuates throughout the interview. Tongue is symmetric and midline with no atrophy or fasciculation. She does have sensation loss on the right side of the face to light touch and temperature sensation. Motor Examination: Reduced effort when examining the right arm, right leg. She does have drift and the right arm and leg fall to the bed, but when the right arm was placed over her head the arm does not fall or cause any injury to the head. There is some resistance when placing the right arm over her head. Sensation Examination: Splitting of the temperature sensation on the forehead on the right and left. Also, she has decreased sensation to temperature and light touch on the right arm and right leg. Coordination: Mild dysmetria to [id number] due to poor activation and give-way weakness of the right upper extremity. Reflexes are 2+ and symmetric bilaterally. Downgoing plantar responses. Gait was not assessed. ASSESSMENT AND RECOMMENDATION: Ms. Cristin Cota is a 43-year-old right-handed female who has history of depression, bipolar disorder, reported history of seizures 20 years ago, carcinoid tumor of the bile duct, who is scheduled for surgery next month, who presented with symptoms of right hemiparesis and hemiparesthesias. The patient's examination is notable for give-way activation of the right arm and right leg with a fluctuating right facial asymmetry and slurred speech. The patient has poor eye contact and is closing her eyes throughout the interview, asking to be left alone and if she can sleep. The patient denied any similar symptoms in the past. However, upon review of the medical records, the patient was hospitalized for right-sided weakness in where she was discovered to have a diagnosis of conversion disorder per Dr. Kumar. The patient did have recent stressors at that time. The patient did not report any recent stressors during this interview today. NIH stroke scale initially was 6-7, improved to 2 due to subjective sensory loss on the right and intermittent mild slurred speech. The patient is not a candidate for IV tPA due to being outside the therapeutic window and she did not have an LVO. Plus, the suspicion for stroke here is low based on her physical examination findings and history of a similar presentation with negative intracranial imaging. In 2013, the patient's symptoms appear to have resolved after 24 hours after she found out that her MRI was negative; therefore, a TIA at that time was not a possible diagnosis. However, given her history of cancer and recurrent symptoms, I agree with proceeding with further intracranial imaging to rule out any possible stroke, again less likely or metastatic disease. Recommendation: Obtain an MRI of the brain with or without contrast to evaluate for possible stroke. Admit to the hospitalist service under observation. If the MRI is negative and the patient continues to have symptoms , consider a psychiatric consultation for suspected conversion disorder. Please consult PT/OT/SECURITY SPECIALIST. I agree with Plavix 75 mg x1 for now, but if stroke is ruled out we do not need to keep her on Plavix especially if her symptoms last longer than 24 hours. No need for anticoagulation therapy. DVT prophylaxis with SCDs. Hold off on stroke education given the differential for stroke is low in this case. Please obtain an EEG to rule out any possible seizures with Chad's paralysis, although I do not think this is the likely cause of her presentation. I will continue to follow. [id number]/[facility] #: [id number] ADDENDUM: The EEG was reviewed and is abnormal with rare multifocal epileptiform discharges emanating from the right frontotemporal and left frontal regions. 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 Since she has history of seizures and now has an abnormal EEG, I started the patient on levetiracetam 1,000 mg IV x 1 and to continue 500 mg PO twice daily. The patient does have history of mood disorder so she is at risk of worsening mood disturbance on levetiracetam. The side effects include irritability and agitation. A good anti-seizure medication that can be considered as an outpatient would be lamotrigine. However, due to it's taper, it will take 2-3 months to get her on an effective therapeutic level. The patient verbalized understanding of the plan. She wants to go home as her weakness is getting better on the right. We still need an MRI brain to evaluate for any stroke or cancer. Gilmer Hernandez MD [facility]
[2019-01-17 11:58] LABS: Urine Appearance Clear; Urine Bilirubin Negative (Negative); Urine Blood 2+ (Negative); Urine Color Yellow; Urine Glucose Negative (Negative); Urine Ketones Negative (Negative); Urine Nitrite Negative (Negative); Urine Protein Negative (Negative); Urine Specific Gravity 1.041 (1.010-1.030); Urine Urobilinogen Negative (Negative)
[2019-01-17 11:59] LABS: Urine Bacteria Absent (Absent); Urine Red Blood Cell Absent (Absent); Urine Squamous Epithelial Cell Present (Absent); Urine White Blood Cell Trace(0-5/hpf) (Absent)
[2019-01-17] MEDS: Acetaminophen TAB* 325 MG PO PRN ×2 (12:27→21:19)
--- NOTE | 2019-01-17 12:56 | HP ---
CC: Dr. Miles; Dr. Fuller; Dr. Hernandez * HISTORY AND PHYSICAL: DATE OF ADMISSION: 01/17/19 PRIMARY CARE PROVIDER: Dr. Miles. CHIEF COMPLAINT: Right-sided weakness. HISTORY OF PRESENT ILLNESS: Cristin Cota is a 43-year-old female with history of previously diagnosed conversion disorder, 1 episode of right-sided weakness and hospitalization for that in 2013 as well as episodes of unresponsiveness for which she was diagnosed with conversion disorder in [place] several years ago, who presented to the hospital complaining of right-sided weakness. The patient stated that she was known "normal" at 1 a.m. today. When she woke up at 7:30 a.m., she had right-sided weakness. She came into the ED for evaluation. Here, the patient was evaluated by the ED physician and neurologist. The patient continues to have rather significant right-sided weakness and right facial droop. The patient is going to be observed overnight to investigate it further. PAST MEDICAL HISTORY: 1. History of conversion disorder with episodes of unresponsiveness and one- sided weakness in the past. 2. History of COPD, not on oxygen. 3. Hypertension. 4. Bipolar disorder. 5. History of parathyroidectomy. 6. 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 She also has elevated prolactin level due to the tumor localized in her pituitary. 7. History of bipolar disorder. 8. Gastroesophageal reflux disease and hiatal hernia. 9. Chronic abdominal pain. 10. Appendectomy. 11. Cholecystectomy. 12. Knee surgeries in 1984 and 2006. MEDICATIONS: At home, include: 1. Ferrous sulfate 65 mg daily. 2. Simvastatin injection subcutaneously monthly. 3. Oxycodone 5 mg every 4 hours p.r.n. 4. Ambien 10 mg at bedtime. 5. Seroquel XR 300 mg at bedtime. 6. Lexapro 10 mg at bedtime. 7. Lomotil 1 tablet up to 4 times a day p.r.n. 8. BuSpar 15 mg b.i.d. 9. Albuterol inhaler on p.r.n. basis. ALLERGIES: ASPIRIN, CEPHALEXIN, DEPAKOTE, ERYTHROMYCIN, FENTANYL, IBUPROFEN, MORPHINE, MOXIFLOXACIN, PENICILLIN, and PSEUDOEPHEDRINE. Please see the patient 's chart for details. FAMILY HISTORY: Mother with history of dyslipidemia. Father unknown. SOCIAL HISTORY: The patient lives with her ex- and her son. She stated that she is unable to name a surrogate at this point. History of smoking 1 pack per day and she has done so ever since she was a teenager. She denies any alcohol or drug use. She is on disability. REVIEW OF SYSTEMS: Complaints of right upper quadrant pain which is chronic due to her carcinoid involvement of the liver. All the remaining 12 systems reviewed with the patient and whatever is negative. PHYSICAL EXAMINATION GENERAL: The patient is a very pleasant 43-year-old obese female who is in no acute distress. Alert, awake and oriented x3. VITAL SIGNS: Blood pressure of 118/97, heart rate of 66 and regular, respiratory rate 17, oxygen saturation 98% on room air, temperature of 98.5. HEENT: Head: Atraumatic, normocephalic. Eyes: Pupils are equal and reactive to light and accommodation. Oropharynx is clear. Mucosa moist. NECK: Supple. No JVD. No bruit bilaterally. RESPIRATORY: Clear to auscultation bilaterally. CARDIOVASCULAR: Regular rate and rhythm. No murmur. ABDOMEN: Soft, minimally tender in the right upper quadrant with no rebound, no guarding. Bowel sounds are present in all 4 quadrants. EXTREMITIES: There is no edema. Pulses are +2 bilaterally. No clubbing or cyanosis. NEUROLOGIC: Notable for right-sided facial droop. There is no tongue deviation. Otherwise, cranial nerves are grossly intact. Sensation is diminished on the right side of the patient's body, although the exam is somewhat inconsistent with the patient's complaints. The patient is noted to have proximal right upper extremity weakness at 4/5. Her handgrips are strong bilaterally at 5/5. Left lower extremity is 3+/5. Babinski sign negative bilaterally. Speech is clear. PSYCHIATRIC: Oriented x3 with no evidence of anxiety or depression. DIAGNOSTIC STUDIES/LAB DATA: White blood cell count of 7.3, hemoglobin of 12.0 , hematocrit of 36, and platelets of 112. Sodium was 139, potassium 3.9, chloride 107, carbon dioxide 29, BUN 14, creatinine 0.75. Liver function tests unremarkable. Lactic acid of 1.5, LDL of 97. The patient's head CTA obtained today, which showed no vascular abnormality of the head or neck. On brain CT, there was no acute intracranial pathology noted. The patient's EKG showed normal sinus rhythm with heart rate of 59 beats per minute with negative T-waves in leads V1 to V4. Comparing with a prior EKG from 2014, those changes are the same. The patient's portable chest x-ray was read by the radiologist as impression: "Cardiomegaly with right basilar airspace disease and left basilar airspace disease consistent with pneumonia." ASSESSMENT AND PLAN: 1. Right-sided weakness in patient with history of conversion disorder. The patient's exam is somewhat not consistent with right-sided hemiparesis. Nevertheless, Chad's paralysis is also on differential. After discussion with Dr. Hernandez, the patient is going to be placed on overnight observation. We will continue Plavix since the patient is allergic to aspirin. MRI of the brain is going to be obtained. We will also obtain an EEG. If the EEG and MRI do not show any abnormalities, the patient will asked to be seen by a psychiatric homemaking rehabilitation consultant. 2. Right basilar infiltrate. The patient is asymptomatic from respiratory standpoint. She denies any cough or shortness of breath. I will ask the patient to follow up with her primary care provider with repeat chest x-ray in regards of that in the future. So far, there were no signs or symptoms of infection. 3. History of carcinoid for which she is on Sandostatin injections on a monthly basis. Please also note that the patient is on Lomotil for frequent bowel movements. 4. Psychiatric problems with bipolar disease. We will continue the patient's Seroquel, Lexapro, BuSpar. 5. History of chronic obstructive pulmonary disease. The patient is going to be continued on her albuterol inhaler. She is not in exacerbation. 6. For DVT prophylaxis, the patient is going to be placed on heparin subcutaneously. 7. The patient's code status is full and she was unable to name a surrogate today. She was encouraged to choose a surrogate in the near future. TIME SPENT: Approximately 70 minutes were spent on admission of this patient, more than half that time was spent [id number] with the patient during the interview and physical exam. [id number]/[facility] #: [id number] [facility]
[2019-01-17] MEDS: Heparin VIAL(*) 5000 UNITS/ML VIAL (FIVE THOUSAND) SUBCUT SCH ×2 (13:28→21:20)
[2019-01-17] MEDS ORDERED: levETIRAcetam 1000MG IVPREMIX* 1,000 MG/100 ML BAG IVPB ONE (13:59)
[2019-01-17] MEDS ORDERED: ZONISAMIDE 50 MG PO SCH (14:00)
--- NOTE | 2019-01-17 14:44 | EEG ---
ELECTROENCEPHALOGRAPHY REPORT: DATE OF STUDY: 01/17/19 DATE READ: 01/17/19 MEDICATIONS: 1. Heparin. 2. Buspirone. 3. Escitalopram. 4. Quetiapine. 5. Zolpidem. 6. Lomotil. 7. Oxycodone. 8. Plavix. CLINICAL PROBLEM: Mrs. Cota is a 43-year-old female with history of seizures who presented with history of transient right-sided weakness and paresthesia. This EEG was obtained to evaluate for epileptiform abnormalities or electrographic seizures. CLINICAL STATE: Awake and drowsy state. REPORT: The most prominent feature of this recording were rare, multifocal, spike and slow-wave epileptiform discharges independently seen in the right frontotemporal and left frontal regions. These discharges were maximal at T4, F8, FP1, and F7. There were no associated electrographic seizures. Also, there were occasional, diffuse paroxysms of medium amplitude, polymorphic , 3 to 5 Hz Polymorphic delta and theta slowing. The slowing lasted for approximately 1-4 seconds. Otherwise, the waking background showed appropriate organization with clearly defined anterior-posterior voltage and frequency gradients. There was a well- defined posterior dominant rhythm of 10 Hz, which was symmetrical and showed normal reactivity. Anteriorly, there was an expected pattern of lower voltage irregular mixed faster frequencies. Hyperventilation and photic stimulation were not performed. EKG showed normal sinus rhythm with a rate of 75 beats per minute. Throughout the recording, there were no clear electrographic seizures. CLINICAL IMPRESSION: This is an abnormal awake and drowsy EEG due to the presence of: 1. Rare multifocal epileptiform discharges mostly emanating from the right frontotemporal and left frontal regions. These findings are suggestive of increased epileptogenic potentials emanating from multiple regions or could be fragments from underlying primary generalized epilepsy. 2. Diffuse polymorphic slowing which suggests mild nonspecific encephalopathy which can be seen with toxic metabolic disturbance, postictal state, or medication effect. There were no electrographic seizures recorded. I discussed these results with Dr. Kumar at 1345. We have agreed to start the patient on levetiracetam 1000 mg IV bolus and continue 500 mg twice daily. [id number]/[facility] #: [id number] [facility]
[2019-01-17] MEDS ORDERED: Gadoteridol* (CONTRAST) 279.3 MG/ML 10 ML IV ONE (17:01)
[2019-01-17] MEDS ORDERED: QUEtiapine XR TAB* 300 MG PO SCH (21:00)
[2019-01-17] MEDS ORDERED: busPIRone TAB* 15 MG PO SCH (21:00)
[2019-01-17] MEDS ORDERED: Escitalopram * 10 MG TAB PO SCH (21:00)
[2019-01-17] MEDS ORDERED: Zolpidem TAB* 10 MG PO SCH (21:00)
[2019-01-17] MEDS: levETIRAcetam TAB* 500 MG PO SCH (21:18)
[2019-01-18] MEDS: Heparin VIAL(*) 5000 UNITS/ML VIAL (FIVE THOUSAND) SUBCUT SCH (05:54)
[2019-01-18 08:05] VITALS: BP 121/56
[2019-01-18] MEDS: levETIRAcetam TAB* 500 MG PO SCH (08:12)
[2019-01-18] MEDS ORDERED: Clopidogrel TAB* 75 MG PO SCH (09:00)
--- NOTE | 2019-01-18 11:27 | PN ---
Subjective Date of Service: 01/18/19 Length of Stay: 1 Days Neurology is following for suspected seizures. Interval History: The weakness and numbness have resolved. She feels back to her normal self. The patient informed me today that she was discontinued off her seizure medication three years ago in [place]. Since then, she has days where she wakes up sore in the morning, and sometimes she wakes up to a bitten tongue. She doesn't have seizure activity during the day. She does have history of starring spells in the past. She used to be on Keppra and had tolerated the medication well. She denied any headaches or visual disturbance. Labs, imaging, and other diagnostic testing: Brain MRI with/without contrast 01/18/2019: no acute intracranial abnormality. Head CTA 01/17/2019: no evidence of LVO, stenosis, or aneurysms. EEG: rare multifocal epileptiform discharges mostly emanating from the right frontotemporal and left frontal regions. These findings may be seen with focal epilepsy or fragments from underlying primary generalized epilepsy. There was also diffuse polymorphic slowing which suggests mild nonspecific encephalopathy which can be seen with post-ictal state. Review of Systems: Denied CP, SOB, or palpitations. Objective Active Medications: Acetaminophen (Tylenol Tab*) 650 mg PO Q4H PRN PRN Reason: PAIN-MILD/TEMP >/= 100.4 Last Admin: 01/17/19 21:19 Dose: 650 mg Albuterol (Ventolin Hfa Inhaler*) 2 puff INH Q4H PRN PRN Reason: WHEEZING Buspirone HCl (Buspar Tab *) 15 mg PO BEDTIME [facility] Last Admin: 01/17/19 21:18 Dose: 15 mg Clopidogrel Bisulfate (Plavix Tab*) 75 mg PO DAILY [facility] Last Admin: 01/18/19 08:12 Dose: 75 mg Diphenoxylate HCl/Atropine (Lomotil Tab*) 1 tab PO QID PRN PRN Reason: DIARRHEA Escitalopram Oxalate (Lexapro *) 10 mg PO BEDTIME [facility] Last Admin: 01/17/19 21:18 Dose: 10 mg Heparin Sodium (Porcine) (Heparin Vial(*)) 5,000 units SUBCUT Q8HR [facility] Last Admin: 01/18/19 05:54 Dose: 5,000 units Levetiracetam (Keppra Tab*) 500 mg PO BID [facility] Last Admin: 01/18/19 08:12 Dose: 500 mg Oxycodone HCl (Roxycodone Tab*) 5 mg PO Q4H PRN PRN Reason: PAIN - MODERATE Last Admin: 01/17/19 17:56 Dose: 5 mg Quetiapine Fumarate (Seroquel Xr Tab*) 300 mg PO BEDTIME [facility] Last Admin: 01/17/19 21:19 Dose: 300 mg Zolpidem Tartrate (Ambien Tab*) 10 mg PO BEDTIME [facility] Last Admin: 01/17/19 21:19 Dose: 10 mg Vital Signs 01/17/19 01/17/19 01/17/19 11:28 11:49 11:53 Temperature 97.7 F Pulse Rate 60 57 63 Respiratory 15 19 12 Rate Blood Pressure 142/80 140/85 144/89 (mmHg) O2 Sat by Pulse 97 98 96 Oximetry 01/17/19 01/17/19 01/17/19 12:00 12:19 15:15 Temperature 97.1 F 98.1 F Pulse Rate 65 61 64 Respiratory 13 14 20 Rate Blood Pressure 142/80 148/74 (mmHg) O2 Sat by Pulse 97 97 95 Oximetry 01/17/19 01/17/19 01/17/19 17:56 19:29 20:00 Temperature 97.3 F Pulse Rate 63 Respiratory 18 16 Rate Blood Pressure 130/57 (mmHg) O2 Sat by Pulse 97 97 Oximetry 01/17/19 01/17/19 01/18/19 20:38 23:33 03:16 Temperature 98.6 F 98.1 F Pulse Rate 64 61 Respiratory 16 16 16 Rate Blood Pressure 131/98 152/72 (mmHg) O2 Sat by Pulse 95 97 Oximetry 01/18/19 01/18/19 06:59 07:15 Temperature 97.8 F Pulse Rate 55 Respiratory 16 18 Rate Blood Pressure 121/56 (mmHg) O2 Sat by Pulse 98 Oximetry Intake and Output Last 24 Hours 01/16/19 01/17/19 01/18/19 01/19/19 06:59 06:59 06:59 06:59 Intake Total 220 120 Balance 220 120 Weight 223 lb 11.2 oz Intake: Oral 220 120 Oxygen Devices in Use Now: None Neurology Exam: General: Well nourished, well developed, and in no acute distress HEENT: Normocephelic/atraumatic, sclera anicteric, mucous membranes moist Neck: Supple Chest: Clear to auscultation bilaterally Cardiovascular: Regular rate and rhythm without murmurs, rubs, gallops Extremities: No clubbing, cyanosis, or edema Neurological Findings: Awake, alert, and oriented to person, place, and time. Mild psychomotor slowing. Speech: fluent without dysarthria, repetition intact Cranial Nerve: PERRL, EOM intact, VFF, no nystagmus, face symmetric bilaterally , facial sensation intact, hearing intact to finger rub bilaterally, palate elevates symmetrically, tongue midline, SCM and Trapezius s/s. Motor: s/s throughout, proximal and distal extremities x4 tone/bulk normal Sensation: intact to LT/PP bilaterally upper and lower extremities Deep Tendon Reflex: 1+ symmetric in the upper/lower extremities, Babinski - down going Finger to nose, rapid alternating movements intact without tremor, no dysdiadochokinesia Gait: intact with good arm swing and stride Result Diagrams: 01/17/19 08:45 01/17/19 08:45 Additional Lab and Data: Lab Results 01/17/19 01/17/19 Range/Units 08:44 08:45 WBC 7.0 (3.5-10.8) 10^3/uL RBC 4.40 (3.70-4.87) 10^6 /uL Hgb 12.0 (12.0-16.0) g/dL Hct 36 (35-47) % MCV 81 (80-97) fL MCH 27 (27-31) pg MCHC 34 (31-36) g/dL RDW 14 (10-15) % Plt Count 212 (150-450) 10^3/uL MPV 8.5 (7.4-10.4) fL Neut % (Auto) 64.6 % Lymph % (Auto) 27.3 % [place]geman % (Auto) 6.9 % Eos % (Auto) 0.9 % Baso % (Auto) 0.3 % Absolute Neuts (auto) 4.5 (1.5-7.7) 10^3/ul Absolute Lymphs (auto) 1.9 (1.0-4.8) 10^3/ul Absolute Monos (auto) 0.5 (0-0.8) 10^3/ul Absolute Eos (auto) 0.1 (0-0.6) 10^3/ul Absolute Basos (auto) 0.0 (0-0.2) 10^3/ul Absolute Nucleated RBC 0.0 10^3/ul Nucleated RBC % 0.0 POC Glucose (mg/dL) 125 H (70-100) mg/dL Assessment/Plan Ms. 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 The patient presented to [facility] on 01/17/2019 with sudden onset right sided weakness and paresthesia. The patient woke up with the symptoms. She was admitted with a diagnosis of stroke rule out. MRI brain with and without contrast and CTA head and neck were negative. Initially she was thought to be having a recurrent conversion reaction as on her examination she had right sided weakness with some right eye deviation. This is does not localize to a particular vascular distribution. However, this presentation can be seen with seizures and Chad's paralysis. An EEG completed on 01/17/2019 was notable for rare multifocal epileptiform spike and slow wave discharges mostly involving the frontal lobes bilaterally and paroxysmal slowing. The patient was placed back on levetiracetam for which she is tolerating well without any signs of irritability or agitation. Today, the patient has completely recovered and is ambulatory. She is requesting to be discharged home so she can go back to work. 1. 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 She could also have history of psychogenic non-epileptic seizures. Since she has completely recovered overnight, I suspect the weakness was related to Chad's paralysis. Recommendations: - Continue levetiracetam 500 mg by mouth twice daily. Educated her to look for signs of worsening mood, irritability, agitation, or psychosis which can be a side effect of levetiracetam. - Since she has not had any episodes of loss of consciousness or awareness, and we suspect she had a seizure during sleep, driving restriction was not implemented. I still encouraged her not to drive the next week to make sure she does not have a recurrent event. I also advised her to come to the ED if she has any new neurological symptoms such as headache, focal weakness, or paresthesias. - There is no need for antithrombotic or statin therapy since this hospitalization is not related to stroke or TIA. - Follow-up with Dr. Fuller/Dusty in 6-8 weeks.
--- NOTE | 2019-01-18 19:47 | DS ---
ADDENDUM NOW INCLUDED ON THIS REPORT CC: Dr. Miles; Dr. Hernandez; Dr. Fuller * DISCHARGE SUMMARY: DATE OF ADMISSION: 01/17/19 DATE OF DISCHARGE: 01/18/19 PRIMARY CARE PROVIDER: Dr. Miles. 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 SECONDARY DIAGNOSES: 1. History of conversion disorder diagnosed in the past with episodes of unresponsiveness. 2. History of chronic obstructive pulmonary disease, not on oxygen. 3. Hypertension. 4. Bipolar disorder. 5. Parathyroidectomy. 6. Carcinoid tumor removal from the right ileum and hemicolectomy for that in 2004 with carcinoid involvement of liver, pituitary gland, and elevated prolactin secondary to that. 7. Bipolar disorder. 8. Gastroesophageal reflux disease and hiatal hernia. 9. Chronic right upper quadrant abdominal pain due to carcinoid. 10. Status post appendectomy. 11. Status post cholecystectomy. MEDICATIONS AT DISCHARGE: Include: 1. Albuterol inhaler on a p.r.n. basis. 2. BuSpar 15 mg q.h.s. 3. Lomotil on a p.r.n. basis. 4. Lexapro 10 mg at bedtime. 5. Ferrous sulfate 65 mg daily. 6. Octreotide injection monthly. 7. Oxycodone 5 mg every 4 hours p.r.n. 8. Ambien 10 mg at bedtime. 9. Keppra 500 mg b.i.d. 10. Seroquel XR 300 mg at bedtime. CONDITION ON DISCHARGE: Stable. DISPOSITION AT DISCHARGE: Discharged to home. LABORATORY DATA AND STUDIES PERFORMED DURING THE HOSPITAL STAY: The patient's CBC and basic metabolic panel as well as liver function tests were obtained in the history and physical at admission and these are unchanged. The patient's fasting lipid profile showed triglycerides of 94, LDL of 97, cholesterol total of 151, and HDL of 35. EEG obtained on 01/17/19, impression: "This is an abnormal awake and drowsy EEG due to the presence of rare multifocal epileptiform discharges mostly emanating from the right frontotemporal and left frontal regions. These findings are suggestive of increased epileptogenic potentials emanating from multiple regions or could be fragments from underlying primary generalized epilepsy. Diffuse polymorphic slowing, which suggests mild nonspecific encephalopathy, which can be seen with toxic metabolic disturbance, postictal state or medication effect. There were no electrographic seizures recorded." MRI of the brain obtained on admission, impression: "No acute intracranial pathology." Head and neck CTA obtained on admission showed no significant stenosis of either head or neck circulation . CONSULTATION DURING THE HOSPITAL STAY: Included Dr. Hernandez from Neurology. HOSPITALIZATION COURSE: Cristin Cota is a 43-year-old female with a history of conversion disorder, obesity, carcinoid tumor, who presented to the hospital with right-sided weakness that occurred when she woke up in the morning on 01/17. The patient had a similar episode in 2012. At that point, she was diagnosed with likely a conversion disorder. At this time, she was observed on overnight observation. An MRI was obtained and it showed no evidence of stroke. The patient's symptoms were resolving over the course of another 24 hours. The patient's EEG was performed, which showed epileptiform discharges. At this point, after discussion with Dr. Hernandez, it was decided for the patient to be placed on Keppra 500 mg twice a day. It is suspected that the patient's right-sided hemiparesis that resolved by the time of discharge may have been due to Chad paralysis. By the time of discharge, the patient ambulated with me without any problems and steady gait, and no need of assistance. She is going to be discharged home with recommendations to follow up with Dr. Fuller in approximately 1 month. She was instructed not to drive until cleared by Neurology. PHYSICAL EXAMINATION: At the time of discharge, blood pressure of 121/56, heart rate of 55 and regular, respiratory rate 18, oxygen saturation 98% on room air, temperature 97.8. General: The patient is a very pleasant 43-year- old female, who is in no acute distress. Alert, awake, and oriented x3. HEENT : Head: Atraumatic, normocephalic. Eyes: Pupils equal and reactive to light and accommodation. Oropharynx is clear. Mucosa moist. Neck: Supple. No JVD. No bruits bilaterally. Cardiovascular: Regular rate and rhythm. No murmur. Respiratory: Clear to auscultation bilaterally. Abdomen: Soft, nontender. Bowel sounds are present in all 4 quadrants. Extremities: There is no edema. Pulses are +2 bilaterally. No clubbing or cyanosis. On neuro evaluation, the patient appears to still have mild flattening of right nasolabial fold. Her speech is clear. Tongue is not deviating. Cranial nerves II through XII are grossly otherwise intact. Motor strength is 5/5 bilaterally. Gait is steady. The patient ambulates without the need of assistance. The patient is also recommended to follow up with her primary care provider in 4 to 7 days. Please note that this is a short summary of the patient's hospitalization. Please refer to further medical records for details. TIME SPENT: Approximately 45 minutes was spent on the patient's discharge. ADDENDUM: DATE OF ADMISSION: 01/17/19 DATE OF DISCHARGE: 01/18/19 Please note that after the patient left the hospital after being discharged here , the urine cultures turned out to be positive for 100,000 colonies of Klebsiella pneumoniae. Interestingly enough, the patient's urinalysis was not really suggestive of infection, showing only +2 blood, squamous epithelial cells , and high specific gravity. It was negative for white blood cells, negative for bacteria, negative for esterase and nitrites. At this point, I questioned it with our microbiology lab and they are going to get back to me. Nevertheless , even if the patient's urinalysis was suggestive of infection and her urine cultures did glove turner to be positive, she was entirely asymptomatic from urinary symptoms and she would be at that point diagnosed of asymptomatic bacteriuria and not treated. Once again, I do not believe that the patient's microbiology results of Klebsiella pneumoniae culture in the urine requires treatment and I questioned its accuracy. [id number] #: [id number] - [id number] #: [id number] [facility]
--- NOTE | 2019-01-18 21:11 | DS ---
DISCHARGE SUMMARY: ADDENDUM: DATE OF ADMISSION: 01/17/19 DATE OF DISCHARGE: 01/18/19 Please note that after the patient left the hospital after being discharged here , the urine cultures turned out to be positive for 100,000 colonies of Klebsiella pneumoniae. Interestingly enough, the patient's urinalysis was not really suggestive of infection, showing only +2 blood, squamous epithelial cells , and high specific gravity. It was negative for white blood cells, negative for bacteria, negative for esterase and nitrites. At this point, I questioned it with our microbiology lab and they are going to get back to me. 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 Once again, I do not believe that the patient's microbiology results of Klebsiella pneumoniae culture in the urine requires treatment and I questioned its accuracy. [id number] #: [id number] MTDD
== END 2019-01-18 12:37 | disposition home or self-care (01) ==
LOC: ED 08:22 → MEDTELE 10:57
PROVIDERS: ADMIT Internal Medicine; ATTEND Internal Medicine
DX: G83.84 Todd's paralysis (postepileptic) (principal); G40.909 Epilepsy, unspecified, not intractable, without status epilepticus; J44.9 Chronic obstructive pulmonary disease, unspecified; I10 Essential (primary) hypertension; K21.9 Gastro-esophageal reflux disease without esophagitis; K44.9 Diaphragmatic hernia without obstruction or gangrene; R20.0 Anesthesia of skin; Z86.73 Personal history of transient ischemic attack (TIA), and cerebral infarction without residual deficits; Z79.899 Other long term (current) drug therapy; E03.9 Hypothyroidism, unspecified; F17.210 Nicotine dependence, cigarettes, uncomplicated; R94.31 Abnormal electrocardiogram [ECG] [EKG]
CPT/HCPCS: 36415; 70450; 70496; 70498; 70553; 71045; 80053; 80061; 81003; 81015; 83605; 84484; 85025; 85610; 85730; 87077; 87086; 87186; 93005; 95816; 96372; 99284; A9270-GY; A9579; G0378; J1644; J1953; Q9967

== ENCOUNTER 2019-01-26 12:10 | Emergency (ER) | payer OTHER ==
--- OUTSIDE RECORDS SUMMARY | 2019-01-26 12:27 | XMS REPORT | Summary of Care ---
:1975 Author Organization [facility] Address [address] [place] [address] Care Team Providers Name Role Phone Aleksandra Miles Primary Care Provider Reason for Visit Reason Comments Transitional Care Management overnight stay @ [facility] of new onset of seizure Encounter Details Date Type Department Care Team Description 01/25/2019 Office Visit [facility], Seizure disorder (HCC) ( Primary Dx); Practice MD Aleksandra Urine abnormality; [address] Chad's paralysis (HCC) [place] [address] [place] [address] [phone] Allergies Active Allergy Reactions Severity Noted Date [...] as of this encounter (statuses as of 01/25/2019) Medications Medication Sig Dispensed Refills Start Date End Date Status Quetiapine Fumarate Take 300 mg by 0 Active (SEROQUEL XR) 300 mouth EVERY MG Oral TABLET SR BEDTIME. 24 HR Escitalopram Take 10 mg by 0 Active Oxalate (LEXAPRO mouth EVERY PO) BEDTIME. busPIRone (BUSPAR) Take 15 mg by 0 Active 15 MG Oral Tab mouth TWICE DAILY. albuterol HFA Take 2 Puffs by 1 Inhaler 0 04/25/2017 Active (VENTOLIN HFA) 108 inhalation EVERY (90 Base) MCG/ACT FOUR HOURS Inhalation Aero NEEDED Soln (wheezing). zolpidem (AMBIEN) Take 10 mg by 0 Active 10 MG Oral Tab mouth EVERY BEDTIME NEEDED. Ferrous Sulfate Take 1 Tab by 0 Active (IRON SUPPLEMENT mouth DAILY. PO) OXYcodone Take 1 Tab by 60 Tab 0 12/27/2018 Active (OXY-IR,OXY-FAST) 5 mouth EVERY FOUR MG Oral Tab HOURS NEEDED (pain). Max Daily Amount: 30 mg. levetiracetam Take 500 mg by 0 Active (KEPPRA) 500 MG mouth TWICE Oral DAILY. TabIndications: 500 Indications: 500 am 1000hs am 1000hs sulfamethoxazole-tr Take 1 Tab by 20 Tab 0 01/25/2019 Active imethoprim (BACTRIM mouth TWICE DS, SEPTRA DS) DAILY. 800-160 MG Oral Tab diphenoxylate-atrop Take 1 Tab by 40 Tab 0 06/21/2018 Discontinued ine (LOMOTIL) mouth FOUR TIMES 9 2.5-0.025 MG Oral DAILY NEEDED Tab for diarrhea. Max Daily Amount: 4 Tabs. sulfamethoxazole-tr Take 1 Tab by 10 Tab 0 01/25/2019 Discontinued imethoprim (BACTRIM mouth TWICE 9 DS, SEPTRA DS) DAILY. 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 Dr. Cardenas Hypertension Seizure disorder documented as of this encounter (statuses as of 01/25/2019) Immunizations Name Administration Dates Next Due Influenza (IM) Preservative Free 11/26/2013 TDAP Vaccine [...] Sign Reading Time Taken Comments Blood Pressure 128/88 01/25/2019 2:27 PM EST Pulse 72 01/25/2019 2:27 PM EST Temperature 36.7 01/25/2019 2:27 PM EST C (98.1 F) Respiratory Rate - - Oxygen Saturation 98% 01/25/2019 2:27 PM EST Inhaled Oxygen Concentration - - Weight 99.2 kg (218 lb 9.6 oz) 01/25/2019 2:27 PM EST Height - - Body Mass Index 39.98 01/24/2019 10:55 AM EST documented in this encounter Patient Instructions Patient InstructionsAleksandra Miles MD - 01/25/2019 2:20 PM EST1. Take Bactrim DS 1 tablet 2 times a day for 10 days 2. Stay hydrated 3. No driving until cleared by neurology documented in this encounter Progress Notes Aleksandra Miles MD - 01/25/2019 2:20 PM EST Patient: Cristin Cota Date of Service: 01/25/2019 Subjective: Cristin Cota is a 43-y.o. female who presents for Chief Complaint Patient presents with Transitional Care Management overnight stay @ [facility] of new onset of seizure TCM Statement. Review of the hospitalization: I am seeing for transition of care following hospitalization. The date of discharge was: 01/17/19 The discharge diagnosis was R hemiparesis, resolved. 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 Seizures new onset. I reviewed the discharge summary, discharge instructions, and pertinent additional documentation obtained during hospitalization. I reconciled the medications. I also reviewed the Transition of Care documentation done by staff. The tests that were not available at the time of discharge were reviewed. Coordination of care. (delete one and this phrase) - I am satisfied that appropriate referrals are in place to deal with the problems identified during hospitalization, and that the patient has adequate community resources and support in place. - Additional testing related to hospitalization was requested today: yes See orders. I confirmed the patient's understanding of the diagnosis and plan of care. Specific education that was provided today: There are no Patient Instructions on file for this visit. The current and discharge medications were reconciled by me, today The source document was hospital discharge summary Patient presented to [facility] on 01/17/19 with complains of R sided weakness she woke up with. EEG done at the Hospital multifocal epileptiform discharges MRI, CTA of the brain - no significant findings. Seen by neurology, started on Keppra R sided weakness resolved Patient also had abnormal UA and positive urine cultures for Klebsiella Patient didn't complain of dysuria, abdominal pain or fever Asymptomatic now. Was seen by neurology as outpatient after the discharge States was cleared to go back to work and allowed to drive We called today [facility] office and they state that patient was advised against driving Past Medical History: Diagnosis Date Asthma Back pain CHRONIC BACK PAIN Bipolar disorder ([facility]) [facility]. Dr. 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 Mendenhall Seizure disorder ([facility]) Outpatient Medications as of 01/25/2019 Medication Sig Dispense Refill albuterol HFA (VENTOLIN HFA) 108 (90 Base) MCG/ACT Inhalation Aero Soln Take 2 Puffs by inhalation EVERY FOUR HOURS NEEDED (wheezing). 1 Inhaler 0 busPIRone (BUSPAR) 15 MG Oral Tab Take 15 mg by mouth TWICE DAILY. Escitalopram Oxalate (LEXAPRO PO) Take 10 mg by mouth EVERY BEDTIME. Ferrous Sulfate (IRON SUPPLEMENT PO) Take 1 Tab by mouth DAILY. levetiracetam (KEPPRA) 500 MG Oral Tab Take 500 mg by mouth TWICE DAILY. Indications: 500 am 1000hs OXYcodone (OXY-IR,OXY-FAST) 5 MG Oral Tab Take 1 Tab by mouth EVERY FOUR HOURS NEEDED (pain). Max Daily Amount: 30 mg. 60 Tab 0 Quetiapine Fumarate (SEROQUEL XR) 300 MG Oral TABLET SR 24 HR Take 300 mg by mouth EVERY BEDTIME. zolpidem (AMBIEN) 10 MG Oral Tab Take 10 mg by mouth EVERY BEDTIME NEEDED. Facility-Administered Medications as of 01/25/2019 Medication Dose Route Frequency Provider Last Rate Last Dose octreotide (SANDOSTATIN) injection 50 mcg 50 mcg Subcutaneous NOW Aura Christianson MD Allergies Allergen Reactions Zithromax [Azithromycin Dihydrate] Respiratory [...] Respiratory Reaction Sudafed Cough [Ambenyl-D] Respiratory Reaction Review of Systems: All remaining review of systems was negative. Objective: BP 128/88 (BP Location: Left arm, Patient Position: Sitting) Pulse 72 Temp 98.1 F (36.7 C) Wt 218 lb 9.6 oz (99.2 kg) SpO2 98% BMI 39.98 kg/m2 GENERAL: alert, no distress EYES: conjunctivae/corneas clear. Pupils equal, round, reactive to light. Equal ocular movements intact. THROAT: lips, mucosa, and tongue normal: teeth and gums normal NECK: supple, symmetrical, trachea midline and no adenopathy BACK: no tenderness to percussion or palpation LUNGS: clear to auscultation bilaterally HEART: regular rate and rhythm, S1, S2 normal, no murmur, click, rub or gallop NEUROLOGIC: Alert and oriented X 3, normal strength and tone. Normal symmetric reflexes. Normal coordination and gait Urine dipstick shows positive for nitrates, leukocytes and blood ICD-9-CM ICD-10-CM 1. Seizure disorder (HCC) 345.90 G40.909 2. Urine abnormality 791.9 R82.90 URINE DIP MANUAL (AMB POCT) UTI URINE CULTURE (C&S) URINE CULTURE (C&S) 3. Chad's paralysis (HCC) Resolved 342.90 G83.84 Patient Instructions 1. Take Bactrim DS 1 tablet 2 times a day for 10 days 2. Stay hydrated 3. No driving until cleared by neurology Author: Aleksandra Miles MD documented in this encounter Plan of Treatment Date Type Specialty Care Team Description 02/21/2019 Office Visit Hematology and Oncology Collins Bernstein PA-C [address] [place] [address] [phone] 02/21/2019 Appointment Infusion Therapy Name Type Priority Associated Diagnoses Date/Time URINE CULTURE (C&S) Lab Routine Urine abnormality 01/25/2019 3:10 PM EST Name Type Priority Associated Diagnoses Order Schedule URINE CULTURE (C&S) Lab Routine Urine abnormality 1 Occurrences starting 01/25/2019 until 07/27/2019 Health Maintenance Due Date Last Done Comments MAMMOGRAM (SCREENING) 04/27/2018 04/27/2017, 06/18/2015, 03/27/2014 (Declined), Additional history exists INFLUENZA VACCINE (#1) 2019 11/26/2013 Postponed from 10/08/2018 (Other) DEPRESSION SCREENING 07/08/2019 07/07/2018 LIPID DISORDER SCREENING 11/02/2019 11/01/2018, 04/25/2017, 04/16/2015, Additional history exists Colonoscopy 11/27/2019 11/26/2014, 07/18/2013, 07/21/2010, Additional history exists PNEUMOCOCCAL 0-64 YRS (1 of 11/30/2019 Postponed from 3 - PCV13) 1979 (Other) DIABETES SCREENING 01/25/2020 01/24/2019, 12/27/2018, 11/29/2018, Additional history exists PAP SMEAR 07/28/2021 07/28/2018, 06/18/2015, 06/18/2015, Additional history exists DTaP/Tdap/Td Vaccines (2 - 06/17/2025 06/18/2015 Tdap) HEPATITIS A IMMUNIZATION Aged Out No longer eligible SERIES based on patient's age to complete this topic HPV IMMUNIZATION SERIES Aged Out No longer eligible based on patient's age to complete this topic MENINGOCOCCAL VACCINE IMM Aged Out No longer eligible based on patient's age to complete this topic documented as of this encounter Goals Goal Patient Goal Associated Recent Patient-Stated? Author Type Problems Progress Blood Pressure Blood Pressure Hypertension 128/88 No Ginger, < 140/90 (01/25/2019 Aleksandra, 2:27 PM EST) Note: Hypertension Care Plan Based [...] Educational Resources: National Heart, Lung, & Blood [place] http://nhlbi.nih.gov/hbp/index.html The DASH Diet Eating Plan http://www.nhlbi.nih.gov/health/health-topics/ topics/dash/ Academy of Nutrition & DIetetics http://eatright.org National Smoking Cessation Site http://smokefree.gov Blood Pressure < Blood Pressure 128/88 (01/25/2019 No Aleksandra Miles, 140/90 2:27 PM EST) Note: This is an individualized treatment (blood [...] counseling Weight loss vs. 18 mo Lifestyle 4.4 (01/25/2019 2:27 PM No Aleksandra Miles MD max (lbs) >= 10 EST) Note: This is an individualized lifestyle goal [...] Procedure Name Priority Date/Time Associated Diagnosis Comments URINE DIP MANUAL Routine 01/25/2019 3:00 PM Urine abnormality Results for this (AMB POCT) EST procedure are in the results section. documented in this encounter Results URINE DIP MANUAL (AMB POCT) (01/25/2019 3:00 PM EST) URINE GLUCOSE (POCT) Negative Negative mg/dl [facility] POCT URINE BILIRUBIN Negative Negative [facility] (POCT) [place] POCT Urine Ketones (POCT) Negative Negative [facility] POCT URINE SPECIFIC 1.015 1.005 - 1.030 [facility] GRAVITY (POCT) [place] POCT URINE BLOOD (POCT) Trace-Intact (A) Negative [facility] POCT URINE PH (POCT) 6.5 5.0 - 8.0 [facility] POCT URINE PROTEIN (POCT) Trace (A) Negative mg/dl [facility] POCT URINE UROBILINOGEN 0.2 0.2 - 1.0 mg/dl [facility] (POCT) [place] POCT URINE NITRITES Positive (A) Negative [facility] (POCT) [place] POCT URINE LEUKOCYTES Small (A) Negative [facility] (POCT) Cells/uL [place] POCT Specimen Urine - Urine specimen (specimen) Performing Organization Address City/State/Zipcode Phone Number [facility] [address] [place] [address] documented in this encounter Visit Diagnoses Diagnosis Urine abnormality Other nonspecific finding on examination of urine Seizure disorder (HCC) Unspecified epilepsy without mention of intractable epilepsy Chad's paralysis (HCC) Hemiplegia, unspecified, affecting unspecified side documented in this encounter Guarantor Name Account Type Relation to Date of Phone Billing Address Patient Cristin Cota Personal/Family 1975 [address] [place] [address] documented as of this encounter
--- OUTSIDE RECORDS SUMMARY | 2019-01-26 12:27 | XMS REPORT | Summary of Care ---
:1975 Author Organization [facility] Address [address] [address] Care Team Providers Name Role Phone Aleksandra Miles Primary Care Provider Reason for Visit (Routine) Status Reason Specialty Diagnoses / Referred By Referred To Procedures Contact Contact Authorized Infusion Therapy Diagnoses Other secondary neuroendocrine tumors Leanna [facility] Infusion Procedures [place] LANREOTIDE INJECTION MD [facility] [address] [address] [address] [place] [address] [address] [place] Phone: [phone] Encounter Details Date Type Department Care Team Description 01/24/2019 Hospital Encounter [facility] Infusion Center Outpatient [address] [phone] Allergies Active Allergy Reactions Severity Noted Date [...] as of this encounter (statuses as of 01/26/2019) Medications Medication Sig Dispensed Refills Start Date End Date Status Quetiapine Take 300 mg by 0 Active Fumarate (SEROQUEL mouth EVERY XR) 300 MG Oral BEDTIME. TABLET SR 24 HR Escitalopram Take 10 mg by [...] by 60 Tab 0 12/27/2018 Active (OXY-IR,OXY-FAST) mouth EVERY FOUR 5 MG Oral Tab HOURS NEEDED (pain). Max Daily Amount: 30 mg. diphenoxylate-atro Take 1 Tab by 40 Tab 0 06/21/2018 Discontinued pine (LOMOTIL) mouth FOUR TIMES 9 2.5-0.025 MG Oral DAILY NEEDED Tab for diarrhea. Max Daily Amount: 4 Tabs. 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 Dr. aCrdenas Hypertension Seizure disorder documented as of this encounter (statuses as of 01/26/2019) Immunizations Name Administration Dates Next Due Influenza [...] Collins Bernstein PA-C [address] [address] 02/21/2019 Appointment Infusion Therapy Health Maintenance Due Date [...] Educational Resources: National Heart, Lung, & Blood [place] http://nhlbi.nih.gov/hbp/index.html The DASH Diet Eating Plan http://www.nhlbi.nih.gov/health/health-topics/ topics/dash/ Academy of Nutrition & DIetetics http://eatright.org National Smoking Cessation Site http://smokefree.gov Blood Pressure < Blood Pressure 128/88 (01/25/2019 No Aleksandra Miles, 140/90 2:27 PM FIFI) Note: This is an individualized [...] Summaries. Keep a regular sleep schedule Lifestyle Aleksanrda Riley MD Note: This is an individualized [...] Date Dose Rate Site lanreotide (SOMATULINE) Given 01/24/2019 11:58 AM 120 mg Buttocks - Left injection 120 mg EST 120 mg, Subcutaneous, [id number], First dose (after last reorder) on Tue01/24/19 at 1240, Until Discontinued, Administer by deep subcutaneous injection to superior outer quadrant of buttocks. Alternate injection sites. Remove product from sealed pouch and allow to sit for 30 minutes prior to administration once removed from refrigerator. , documented in this encounter documented as of this encounter
--- OUTSIDE RECORDS SUMMARY | 2019-01-26 12:27 | XMS REPORT | Continuity of Care Document ---
:1975 External Reference #:[id number] Author Name Dusty Feliz NP (transmitted by agent of provider June Robertson) Address [address], [place] [address] Care Team Providers Name Role Phone Aleksandra Miles MD - Family Care Team Information [employer] [employer] [phone] Medicine Problems Description No Information Available Social History Type Date Description Comments Sex Unknown ETOH Use Denies alcohol use Tobacco Use Start: Unknown Patient is a current smoker, smokes every day Smoking Status Reviewed: 01/22/19 Patient is a current smoker, smokes every day Exercise Type/Frequency Walks Daily Allergies, Adverse Reactions, Alerts Active Allergies Reaction Severity Comments Date PCN 12/08/2006 Erythromycin 12/08/2006 Aspirin 12/08/2006 Ibuprofen 12/08/2006 Sudafed 12/08/2006 Morphine Sulfate 12/08/2006 Keflex 12/08/2006 Zithromax 12/08/2006 Depakote 12/08/2006 Avelox 02/01/2013 Medications Active Medications SIG Qnty Indications Ordering Date Provider Buspirone HCL 1 po at bedtime 60tabs Unknown 15mg Tablets Ambien 1 po qhs prn Unknown 10mg Tablets sleep Seroquel XR 1 tab po qhs Unknown 300mg Tablets ER 24HR Omeprazole 1 po qd 90caps Unknown 40mg Capsules DR Stokes Take one tab po 90tabs Stephan S. 500mg in the morning Madhuri Fuller Tablets and two tabs at night. Oxycodone HCL 1 tabs by mouth Unknown 5mg Tablets every 4 hours as needed Ferrous Sulfate 65 MG one tab daily Unknown Diphenoxylate-Atropine 1 every 4 time Unknown daily as needed 2.5-0.025mg Tablets diarrhea Albuterol Sulfate HFA 2 puffs every 4 Unknown hours as needed 108(90Base) mcg/Act Aerosol Lexapro 1 by mouth every Unknown 10mg Tablets day Immunizations Description No Information Available Vital Signs Date Vital Result Comment 01/22/2019 9:15am Height 62 inches 5'2" Weight 217.00 lb Heart Rate 68 /min BP Systolic 128 mmHg BP Diastolic 88 mmHg BMI (Body Mass Index) 39.7 kg/m2 01/19/2016 1:07pm Height 62 inches 5'2" Weight 216.00 lb Heart Rate 79 /min BP Systolic 123 mmHg BP Diastolic 80 mmHg BMI (Body Mass Index) 39.5 kg/m2 Results Description No Information Available Procedures Description No Information Available Medical Devices Description No Information Available Encounters Description No Information Available Assessments Date Code Description Provider 01/22/2019 R56.9 Unspecified convulsions Dusty Feliz NP Plan of Treatment Future Appointment(s):02/20/2019 9:00 am - Dusty Feliz NP at [facility]01/22/2019 - Dusty Feliz, NPR56.9 Unspecified convulsionsNew Labs:Levetiracetam (Keppra), Ordered: 01/22/19New Orders:EEG, 24 Hour Ambulatory, Ordered: 01/22/19Follow up:ONE MONTH OK to resume work.Recommendations:I will increase Levetiracetam to 1000 mg at night and 500 mg in the morning (1500 mg/day) Please obtain level in 1-2 weeks after starting the increase. Functional Status Description No Information Available Mental Status Description No Information Available Referrals Description No Information Available
[2019-01-26] MEDS ORDERED: NS 0.9% 1000 ML** 1,000 ML IV ONE (12:33)
--- NOTE | 2019-01-26 12:33 | ED ---
Neurological HPI - HPI Summary HPI Summary: This patient is a 43 year old female with a Hx of epilepsy brought in by EMS presenting to [facility] with a chief complaint of seizures. She states she had a seizure last night and today. She states she gets right-sided deficits during and/or following seizures, althought there are none at this time. She states she had a recent dose change to Keppra from 500 mg BID to 500mg Am and 1000 mg PM. The patient denies incontinence with the seizure. - History of Current Complaint Chief Complaint: EDSeizure Stated Complaint: SEISURE PER EMS Time Seen by Provider: 01/26/19 12:26 Hx Obtained From: Patient Hx Last Menstrual Period: 07/18/17 Onset/Duration: Started minutes ago Pain Intensity: 0 - Allergy/Home Medications Allergies/Adverse Reactions: Allergies Allergy/AdvReac Type Severity Reaction Status Date / Time aspirin Allergy Heartburn Verified 12/05/18 16:15 cephalexin [From Keflex] Allergy Anaphylatic Verified 12/05/18 16:15 Shock divalproex sodium Allergy See Comment Verified 12/05/18 16:15 [From Depakote] erythromycin base Allergy Anaphylatic Verified 12/05/18 16:15 Shock fentanyl Allergy Agitation Verified 12/05/18 16:15 ibuprofen Allergy Heartburn Verified 12/05/18 16:15 morphine Allergy Hives Verified 12/05/18 16:15 moxifloxacin [From Avelox] Allergy Anaphylatic Verified 12/05/18 16:15 Shock Penicillins Allergy Anaphylatic Verified 12/05/18 16:15 Shock pseudoephedrine Allergy Hives Verified 12/05/18 16:15 [From Sudafed] Home Medications: Home Medications Ferrous Sulfate TAB* 325 mg PO DAILY 01/26/19 [History Confirmed 01/26/19] busPIRone TAB* [Buspar TAB *] 15 mg PO BID 01/26/19 [History Confirmed 01/26/19] levETIRAcetam TAB* [Keppra TAB*] 1,000 mg PO BEDTIME 01/26/19 [History Confirmed 01/26/19] levETIRAcetam TAB* [Keppra TAB*] 500 mg PO QAM 01/26/19 [History Confirmed 01/26] PMH/Surg Hx/FS Hx/Imm Hx Endocrine/Hematology History: Reports: Hx Thyroid Disease, Other Endocrine/ Hematological Disorders - MEN1 Denies: Hx Diabetes Cardiovascular History: Reports: Hx Hypertension Denies: Hx Congestive Heart Failure, Hx Pacemaker/ICD Respiratory History: Reports: Hx Asthma, Hx Chronic Obstructive Pulmonary Disease (COPD) - chronic bronchitis, Hx Sleep Apnea GI History: Reports: Hx Gastroesophageal Reflux Disease, Hx Irritable Bowel, 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 Denies: Hx Ulcer History: Denies: Hx Renal Disease Sensory History: Denies: Hx Contacts or Glasses, Hx Legally Blind, Hx Deafness, Hx Hearing Aid Opthamlomology History: Denies: Hx Contacts or Glasses, Hx Legally Blind Neurological History: Reports: Hx Transient Ischemic Attacks (TIA) Denies: Other Neuro Impairments/Disorders Psychiatric History: Reports: Hx Bipolar Disorder Denies: Hx Eating Disorder, Hx Panic Disorder, Hx of Violent Episodes Against Others - NOT FOR 18 YEARS - Cancer History Cancer Type, 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 - Surgical History Surgery Procedure, Year, and Place: left knee reconstruction and meniscal repair , tumor removal from bowel duct, gallbladder, tubal ligation, appendix, PARATHYROIDECTOMY 07/2012 Infectious Disease History: No Infectious Disease History: Denies: Hx Hepatitis, Hx Human Immunodeficiency Virus (HIV), History Other Infectious Disease, Traveled Outside the [place] in Last 30 Days - Family History Known Family History: Positive: Cardiac Disease, Hypertension, Diabetes - Social History Alcohol Use: None Hx Substance Use: No Substance Use Type: Reports: None Smoking Status (MU): Heavy Every Day Tobacco Smoker Type: Cigarettes Amount Used/How Often: 1 1/2 PPD Length of Time of Smoking/Using Tobacco: 26 YRS Review of Systems Negative: Fever Neurological: Other - Seizure, post-ictal right sided deficits, resolved. All Other Systems Reviewed And Are Negative: Yes Physical Exam - Summary Physical Exam Summary: Constitutional: Well-developed, Well-nourished, Alert. (-) Distressed Skin: Warm, Dry HENT: Normocephalic; Atraumatic Eyes: Conjunctiva normal Neck: Musculoskeletal ROM normal neck. (-) JVD, (-) Stridor, (-) Tracheal deviation Cardio: Rhythm regular, rate normal, Heart sounds normal; Intact distal pulses; The pedal pulses are 2+ and symmetric. Radial pulses are 2+ and symmetric. (-) Murmur Pulmonary/Chest wall: Effort normal. (-) Respiratory distress, (-) Wheezes, (-) Rales Abd: Soft. (-) Tenderness, (-) Distension, (-) Guarding, (-) Rebound Musculoskeletal: (-) Edema Lymph: (-) Cervical adenopathy Neuro: Alert, Oriented x3, Strength normal, Cranial nerves II-XII are grossly intact. (-) Dysmetria, (-) Nystagmus, (-) Ataxia by finger to nose testing, (-) Sensory deficit. Psych: Mood and affect Normal Triage Information Reviewed: Yes Vital Signs On Initial Exam: Initial Vitals Temp Pulse Resp BP Pulse Ox 97.2 F 56 16 141/103 97 01/26/19 12:23 01/26/19 12:23 01/26/19 12:23 01/26/19 12:23 01/26/19 12:23 Vital Signs Reviewed: Yes Procedures - Sedation Patient Received Moderate/Deep Sedation with Procedure: No Diagnostics - Vital Signs Vital Signs Temp Pulse Resp BP Pulse Ox 01/26/19 12:23 97.2 F 56 16 141/103 97 - Laboratory Result Diagrams: 01/26/19 12:42 01/26/19 12:42 Lab Statement: Any lab studies that have been ordered have been reviewed, and results considered in the medical decision making process. Course/Dx - Course Course Of Treatment: This patient is a 43 year old female with a Hx of epilepsy brought in by EMS presenting to [facility] with a chief complaint of seizures. 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 Dr. Fuller saw the patient and will give her a dose of Keppra and will perform an EEG examination. She will follow up with Dr. Fuller next week. Plan for discharge was discussed with the patient and she was agreeable with this plan. - Diagnoses Provider Diagnoses: Seizure - Physician Notifications Discussed Care Of Patient With: Stephan Fuller - Neurology Time Discussed With Above Provider: 12:31 Instructed by Provider To: Will See In ED Discharge ED - Sign-Out/Discharge Documenting (check all that apply): Patient Departure - Discharge - Discharge Plan Condition: Stable Disposition: HOME Patient Education Materials: Epilepsy (ED) Referrals: Stephan Fuller MD [Medical Doctor] - Additional Instructions: Return to ED with new or worsening symptoms. - Attestation Statements Document Initiated by Scribe: Yes Documenting Scribe: Fidel Vallejo Provider For Whom Scribe is Documenting (Include Credential): Dmitriy Arellano DO Scribe Attestation: I, Fidel Vallejo, scribed for Dmitriy Arellano DO on 01/26/19 at 1552. Status of Scribe Document: Ready
[2019-01-26] MEDS ORDERED: levETIRAcetam 500 MG IVPREMIX* 500 MG/100 ML BAG IVPB ONE (12:39)
[2019-01-26 12:53] LABS: ABS Basophils 0.1 10^3/ul (0-0.2); ABS Eosinophils 0.1 10^3/ul (0-0.6); ABS Lymphocytes 2.6 10^3/ul (1.0-4.8); ABS Monocytes 0.6 10^3/ul (0-0.8); ABS Neutrophils 5.4 10^3/ul (1.5-7.7); Eosinophil % 1.1 %; Hematocrit 39 % (35-47); Lymphocyte % 29.6 %; Mean Corpuscular HGB Conc 33 g/dL (31-36); Mean Corpuscular Hemoglobin 27 pg (27-31); Mean Corpuscular Volume 82 fL (80-97); Mean Platelet Volume 8.5 fL (7.4-10.4); Nucleated Red Blood Cells % 0.2; Platelet Count 235 10^3/uL (150-450); Red Blood Count 4.75 10^6 /uL (3.70-4.87); Red Cell Distribution Width 14 % (10-15); White Blood Count 8.8 10^3/uL (3.5-10.8)
[2019-01-26 13:08] LABS: Albumin 3.9 g/dL (3.2-5.2); Albumin/Globulin Ratio 1.5 (1-3); BUN/Creatinine Ratio 11.7 (8-20); EGFR African American 98.1 (>60); EGFR Non-African American 81.1 (>60); Globulin 2.6 g/dL (2-4); Potassium 3.9 mmol/L (3.5-5.0); Total Bilirubin 0.4 mg/dL (0.2-1.0); Total Protein 6.5 g/dL (6.4-8.9)
--- NOTE | 2019-01-26 14:01 | CONS ---
NEUROLOGY CONSULTATION: DATE OF CONSULT: 01/26/19 LOCATION: She is in the emergency room. REFERRING PROVIDER: Dr. Arellano. CHIEF COMPLAINT: Right-sided weakness. HISTORY OF PRESENT ILLNESS: Cristin Cota is a 43-year-old woman who just discharged from the hospital on 01/18/19 after evaluation for right-sided weakness. She presented on 01/17/19 when she woke with right-sided weakness. On Dr. Kumar's initial evaluation, she was noted to have a right facial droop and grade 4 right upper extremity weakness. In her history of present illness, she indicated a prior diagnosis of conversion disorder made in [place]. She was seen in consultation by Dr. Hernandez the same day and noted fluctuating facial asymmetry with right facial weakness and give-way weakness of the right arm and leg with fluctuating slurred speech. She was evaluated for possible TPA but had a negative CT angiogram and ultimately negative MRI of the brain. Conversion disorder was suspected. She then had an EEG, which revealed rare multi-focal epileptiform discharges from the right frontotemporal and left frontal regions. It was felt she might have a postictal paralysis. She was started on Keppra. She was discharged on Keppra 500 mg twice per day on . She called to say she had some increased right-sided weakness, I believe, to our office and was told to increase her Keppra to 500 mg in the morning and 1000 mg at night and that was just done a couple of days ago. She said at work last night she had another episode where she felt dizzy, headache, and recurrent right-sided weakness. She had her son bring her Keppra to her place of work. She said she woke this morning and felt pretty good but then she felt confused, had a headache, and got worse in right-sided weakness. I spoke with one of our nurses earlier today who said that she called Cristin to tell her about a more recent EEG report and Cristin reported a new right-sided weakness and she was told to present to the emergency room. Currently, she has a headache and a little bit of nausea. She said she took her Keppra last night as well as this morning. There are no laboratory data yet to review. PHYSICAL EXAM: On exam, she is overweight, looks a little bit lethargic and somewhat sad. Temperature is 97.2, blood pressure 141/103, heart rate 56. Neurological exam: Eye movements and visual andrade are normal. Facial musculature is symmetric. Speech is soft but clear. On motor exam, there is no drift of the limbs other than she has a little bit of a flexion drift at the right wrist. There is no proximal drift. In the lower extremities, there is a little bit of breakaway weakness in the right leg proximally and distally. She has normal strength in the left arm and leg. Finger taps are slow bilaterally. [id number] maneuver is normal bilaterally. Language is fluent. She is fully oriented. IMPRESSION AND PLAN: Impression is that of possible recurrent focal seizures with postictal paralysis but also still suspicious for conversion disorder. She may be a patient with an abnormal EEG but psychogenic nonepileptic events. I recommend giving her an extra 500 mg of Keppra now and I will ask for an EEG be done. If she seems to improve and her EEG looks fine, then I think we could probably discharge her on Keppra 1000 mg twice per day. I think she is going to need some ambulatory EEG monitoring or possibly ultimately referral for inpatient epilepsy monitoring. For now, we will go for a routine EEG, extra Keppra, and see if we can get her home safely. [id number]/[facility] #: [id number] ADDENDUM TO NEUROLOGY CONSULTATION NOTE: Since initial consultation, Cristin feels well other than being tired. She has not had an observed seizures. Her EEG reveals some central slowing, but no epileptiform discharges. We have asked her nurse to see see if she is steady on her feet. If she is well enough to go home, I recommend she would be discharged to home on Keppra 1000 mg in the morning and 1000 mg at night which is an increase by 500 mg in the morning. She is scheduled for an ambulatory EEG this coming Tuesday. Hopefully, we can capture one of her episodes of weakness to determine whether or not in fact she is having epileptic events or in fact this is manifestation of conversion disorder which was her diagnosis and tendency to the best of my understanding. I will discuss my impression with Dr. Arellano. [id number]/[facility] #: [id number] SHREYAS
[2019-01-26 16:10] VITALS: BP 143/86
--- NOTE | 2019-01-26 18:25 | CONS ---
NEUROLOGY CONSULTATION NOTE: ADDENDUM: Since initial consultation, Cristin feels well other than being tired. She has not had an observed seizures. Her EEG reveals some central slowing, but no epileptiform discharges. We have asked her nurse to see see if she is steady on her feet. If she is well enough to go home, I recommend she would be discharged to home on Keppra 1000 mg in the morning and 1000 mg at night which is an increase by 500 mg in the morning. She is scheduled for an ambulatory EEG this coming Tuesday. Hopefully, we can capture one of her episodes of weakness to determine whether or not in fact she is having epileptic events or in fact this is manifestation of conversion disorder which was her diagnosis and tendency to the best of my understanding. I will discuss my impression with Dr. Arellano. [id number]/[facility] #: [id number] SHREYAS
--- NOTE | 2019-01-26 22:04 | EEG ---
ELECTROENCEPHALOGRAM REPORT: DATE OF STUDY: 01/26/19 REFERRING PHYSICIAN: Dr. Fuller. LOCATION: She is in the emergency room. CLINICAL PROBLEM: Recurrent episodes of right-sided weakness. Rule out seizure disorder. MEDICATIONS: The patient is on Keppra. REPORT: This 19-channel EEG is remarkable for background rhythms consisting of an occipital alpha rhythm of about 8 cycles per second, which is symmetric. There is paroxysmal central slowing in the theta range occasionally overflow into the right parasagittal area. Occasionally, paroxysmal central delta slowing is noted with overflow into bilateral parasagittal areas. Activation procedures are not attempted. The patient falls asleep not long into the tracing with snoring and the appearance of vertex slowing and sleep spindles. There are no clinical events. There are no focal, lateralized, or epileptiform abnormalities. CLINICAL IMPRESSION: Paroxysmal slowing preceding sleep probably signifying drowsiness. There are no clinical events nor epileptiform features to this recording. [id number]/[facility] #: [id number] MTDD
== END 2019-01-26 16:11 | disposition home or self-care (01) ==
LOC: ED 12:10
DX: G40.909 Epilepsy, unspecified, not intractable, without status epilepticus (principal); R53.1 Weakness; R51 Headache; R11.0 Nausea; I10 Essential (primary) hypertension; Z88.6 Allergy status to analgesic agent; Z88.1 Allergy status to other antibiotic agents; Z88.5 Allergy status to narcotic agent; Z88.0 Allergy status to penicillin; Z88.8 Allergy status to other drugs, medicaments and biological substances; F17.210 Nicotine dependence, cigarettes, uncomplicated
CPT/HCPCS: 36415; 80053; 85025; 95819; 96361; 96365; 99284

== ENCOUNTER 2021-05-14 20:49 | Inpatient (IN) ==
[2021-05-14 21:51] LABS: ABS Lymphocytes 1.9 10^3/ul (1.0-4.8); ABS Monocytes 0.5 10^3/ul (0-0.8); ABS Neutrophils 6.3 10^3/ul (1.5-7.7); Eosinophil % 0.5 %; Hematocrit 36 % (35-47); Hemoglobin 12.1 g/dL (12.0-16.0); Lymphocyte % 22.2 %; Mean Corpuscular HGB Conc 33 g/dL (31-36); Mean Corpuscular Hemoglobin 24 pg (27-31); Mean Corpuscular Volume 74 fL (80-97); Mean Platelet Volume 8.5 fL (7.4-10.4); Platelet Count 272 10^3/uL (150-450); Red Blood Count 4.95 10^6 /uL (3.70-4.87); Red Cell Distribution Width 15 % (10-15); White Blood Count 8.7 10^3/uL (3.5-10.8)
[2021-05-14 22:27] LABS: Anisocytosis 1+; Microcytosis 1+
[2021-05-14 22:30] LABS: Hypochromasia 1+
[2021-05-14 22:34] LABS: ALT 47 U/L (7-52); AST 24 U/L (13-39); Albumin 4.1 g/dL (3.2-5.2); Albumin/Globulin Ratio 1.9 (1-3); Alcohol, S < 13 mg/dL (<13); Alkaline Phosphatase 145 U/L (35-149); Anion Gap 7 mmol/L (2-11); Blood Urea Nitrogen 9 mg/dL (6-24); CO2 Carbon Dioxide 26 mmol/L (22-32); Calcium 8.9 mg/dL (8.6-10.3); Chloride 107 mmol/L (101-111); Globulin 2.2 g/dL (2-4); Glucose 118 mg/dL (70-100); Potassium 3.9 mmol/L (3.5-5.0); Salicylate < 2.50 mg/dL (<30); Sodium 140 mmol/L (135-145); Total Protein 6.3 g/dL (6.4-8.9); eGFR CKD-EPI 99.7 (>60)
[2021-05-14 22:38] LABS: HCG Pregnancy < 0.60 mIU/mL
[2021-05-14 22:47] LABS: TSH Ultra Thyroid Stim Horm 2.08 mcIU/mL (0.34-5.60)
[2021-05-14 22:49] LABS: Acetaminophen 81 mcg/mL
[2021-05-14 23:50] LABS: Urine Benzodiazepine Screen None Detected (None Detect); Urine Cannabinoids Screen None Detected (None Detect); Urine Opiates Screen None Detected (None Detect)
[2021-05-15] MEDS ORDERED: Lorazepam PYXIS KEY PRN (01:49)
[2021-05-15] MEDS ORDERED: LORazepam 2 mg VIAL 1 ml IM ONE (01:49)
[2021-05-15] MEDS ORDERED: Al Hydrox/Mg Hydrox/Simet LIQ 30 ML UDC PO PRN (04:42)
[2021-05-15 08:27] LABS: Albumin 3.8 g/dL (3.2-5.2); Direct Bilirubin 0.1 mg/dL (0.03-0.18); Globulin 1.9 g/dL (2-4); Indirect Bilirubin 0.5 mg/dL (0.3-1.0); Total Bilirubin 0.6 mg/dL (0.2-1.0); Total Protein 5.7 g/dL (6.4-8.9)
[2021-05-15] MEDS: Vitamin THERAPEUTIC TAB PO SCH (08:57)
[2021-05-15] MEDS ORDERED: Albuterol HFA INHALER 8 gm MDI INH PRN (15:03)
[2021-05-15] MEDS: Nicotine Lozenge mini 4 MG LOZNG.MINI MT PRN (16:45)
[2021-05-15] MEDS: Nicotine GUM 4MG FRUIT FLAVOR PO PRN (16:45)
[2021-05-15] MEDS ORDERED: chlorproMAZINE 25 MG/ML 2 ML (50 MG) ONE (16:54)
[2021-05-15] MEDS ORDERED: chlorproMAZINE 25 MG/ML 2 ML (50 MG) IM ONE (17:00)
[2021-05-16] MEDS: Nicotine GUM 4MG FRUIT FLAVOR PO PRN ×2 (09:27→12:34)
[2021-05-16] MEDS: Vitamin THERAPEUTIC TAB PO SCH (09:27)
[2021-05-16] MEDS: Nicotine Lozenge mini 4 MG LOZNG.MINI MT PRN ×2 (15:31→19:52)
[2021-05-17] MEDS: Nicotine GUM 4MG FRUIT FLAVOR PO PRN ×2 (07:15→21:42)
[2021-05-17] MEDS: Vitamin THERAPEUTIC TAB PO SCH (07:15)
[2021-05-17 08:15] LABS: HDL Cholesterol 43.2 mg/dL
[2021-05-18] MEDS: Nicotine GUM 4MG FRUIT FLAVOR PO PRN ×4 (07:04→17:35)
[2021-05-18] MEDS: Vitamin THERAPEUTIC TAB PO SCH (07:05)
[2021-05-18] MEDS: Nicotine Lozenge mini 4 MG LOZNG.MINI MT PRN (10:33)
[2021-05-19 08:03] VITALS: BP 138/87
[2021-05-19] MEDS: Nicotine GUM 4MG FRUIT FLAVOR PO PRN (08:45)
[2021-05-19] MEDS: Vitamin THERAPEUTIC TAB PO SCH (08:55)
== END 2021-05-19 13:27 | disposition home or self-care (01) | DRG 883 ==
LOC: ED 20:49 → BSU 05-15 02:15 → ED 05-15 03:53
PROVIDERS: ADMIT Psychiatry & Neurology Psychiatry; ATTEND Psychiatry & Neurology Psychiatry